=== PATIENT | male | born 1985 | race African-American/Black ===

== ENCOUNTER 2017-05-26 19:52 | Emergency (ER) | payer MEDICARE, MEDICAID ==
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
[2017-05-26 21:37] VITALS: BP 126/80
== END 2017-05-26 21:49 | disposition home or self-care (01) ==
LOC: ER 19:52
DX: Z93.1 Gastrostomy status (principal); Z87.891 Personal history of nicotine dependence; G82.50 Quadriplegia, unspecified; I10 Essential (primary) hypertension; Z79.01 Long term (current) use of anticoagulants

== ENCOUNTER 2017-05-28 05:00 | Emergency (ER) | payer MEDICARE, MEDICAID ==
--- NOTE | 2017-05-28 05:08 | ERNOTE ---
Medical Problem HPI - General Time Seen by Provider: 05/28/17 05:00 Source: patient, EMS, RN notes reviewed Exam Limitations: clinical condition - Immun/Allergies/Home Medications Immunizations: IMMUNIZATION HX Immunizations Up to Date Yes History of Influenza Vaccine Yes Hx Pneumococcal Vaccination Yes Allergies/Adverse Reactions: Allergies morphine Allergy (Verified 05/26/17 20:13) Home Medications: HOME MEDICATIONS Acetaminophen 160 mg PEG BID 05/26/17 [Last Taken Unknown] Amitriptyline HCl [Elavil] 50 mg PEG HS 05/26/17 [Last Taken Unknown] Ascorbic Acid [Vitamin C] 500 mg PEG DAILY 05/26/17 [Last Taken Unknown] Baclofen 20 mg PEG TID 05/26/17 [Last Taken Unknown] Budesonide [Pulmicort Respules] 0.5 mg IH BID 05/26/17 [Last Taken Unknown] Chlorhexidine Gluconate [Peridex 0.12%] 15 ml MM BID 05/26/17 [Last Taken Unknown] Guaifen/Dextromethorphan/PE [Robafen Cf Liquid] 118 ml PEG QID 05/26/17 [Last Taken Unknown] Lactobacillus Acidophilus [Acidophilus] 2 each PEG BID 05/26/17 [Last Taken Unknown] Polyethylene Glycol 3350 [Miralax] 17 gm PEG DAILY 05/26/17 [Last Taken Unknown] Rivaroxaban [Xarelto] 20 mg PEG DAILY 05/26/17 [Last Taken Unknown] Scopolamine 1 each TD 05/26/17 [Last Taken Unknown] Zinc Sulfate 220 mg PEG DAILY 05/26/17 [Last Taken Unknown] Zolpidem Tartrate 5 mg PO DAILY 05/26/17 [Last Taken Unknown] levETIRAcetam [Keppra Solution] 10 ml PEG BID 05/26/17 [Last Taken Unknown] - History of Present History Narrative: Patient here yesterday for an x-ray after having his PEG tube become displaced. He is back today with the PEG tube out again. Review of Systems - Review of Systems Constitutional: Absent: recent illness, fever, chills EYE: Present: no symptoms reported ENT: Absent: ear pain, sore throat Respiratory: Absent: shortness of breath, cough, wheezing Cardiology: Absent: chest pain, palpitations Gastrointestinal/Abdominal: Present: abdominal pain. Absent: nausea, vomiting, diarrhea Genitourinary: Present: no symptoms reported Musculoskeletal: Present: no symptoms reported Skin: Present: no symptoms reported Neurological: Present: no symptoms reported - Patient's Past Medical History Patient History - Medical: Obesity, Seizures, Other - quadriplegic with a C3-C4 spinal cord injury resulting in an inability to move any of his limbs. He also has a feeding tube for eating. Patient History - Cardiac/Respiratory: Hypertension, CPAP/BiPAP Home Use, Other Patient History - Surgical Procedures: Other - Immunizations Immunizations Up to Date: Yes Hx Pneumococcal Vaccination: Yes History of Influenza Vaccine: Yes Physical Exam - Physical Exam General Appearance: Present: alert, no apparent distress Head Exam: Present: normal inspection, no evidence of injury Eye Exam: Normal inspection: bilateral, PERRL: bilateral, EOMI: bilateral Ears, Nose, Throat: Present: normal ENT inspection, other - tracheostomy Neck: Present: nontender Respiratory: Present: no respiratory distress, normal breath sounds, no accessory muscle use, chest nontender, lungs clear Cardiovascular/Chest: Present: regular rate, rhythm, no murmur Gastrointestinal/Abdominal: Present: normal bowel sounds, nontender, nondistended, soft, other - PEG tube not in place Extremity Exam: Present: other - all four extremities without movement, positive contractures all four extremities Neurological Exam: Present: alert, oriented, normal mood/affect Skin Exam: Present: normal color, warm/dry ED Progress - Vital Signs Patient's Vital Signs:: I have reviewed the patient's vital signs. - X-Ray X-Ray #1 X-Ray: abdomen Interpretation: Interp. by me X-ray Comments: KUB to verify tube placement Contrast noted in stomach, however, the right jaci-diaphragm appears to be markedly elevated. Will get a portable chest x-ray to look at the chest. X-Ray #2 X-Ray: chest Interpretation: Interp. by me X-ray Comments: Chest single view AP Mildly elevated right jaci-diaphragm noted, Osteopenia - Progress/Reassessment Progress:: Improved Progress Note-Subjective: 05/28/17 06:43 PEG tube replaced using one sent over from the [facility], without complications. It has a 20 cc bulb and 20 cc of normal saline were injected into the bulb, no leakage was noted. Contrast material was placed in the PEG tube, with a portable x-ray showing contrast in the antrum of the stomach. Procedures Additional Procedures: gastric tube replacement Complications: Pt precious procedure well Comments: Patient tolerated the procedure well, gastric tube was replaced, 20 cc normal saline placed in the bulb without problems. Departure Clinical Impression: S/P percutaneous endoscopic gastrostomy (PEG) tube placement - Departure Disposition: [facility] Condition: Good
[2017-05-28 08:50] VITALS: BP 141/94
== END 2017-05-28 08:51 | disposition home or self-care (01) ==
LOC: ER 05:00
DX: Z43.1 Encounter for attention to gastrostomy (principal); G40.89 Other seizures; G82.50 Quadriplegia, unspecified

== ENCOUNTER 2017-08-25 01:44 | Inpatient (IN) ==
--- NOTE | 2017-08-25 02:24 | ERNOTE ---
Medical Problem HPI - Narrative Date of Service: 08/25/17 - General Chief Complaint: General Assessment Time Seen by Provider: 08/25/17 02:02 Source: patient, RN notes reviewed - Immun/Allergies/Home Medications Immunizations: IMMUNIZATION HX Immunizations Up to Date Yes History of Influenza Vaccine Yes Hx Pneumococcal Vaccination Yes Allergies/Adverse Reactions: Allergies morphine Allergy (Verified 08/25/17 02:54) Opioids - Morphine Analogues Allergy (Verified 08/25/17 02:54) Home Medications: HOME MEDICATIONS Acetaminophen 160 mg PEG BID 05/26/17 [Last Taken Unknown] Amitriptyline HCl [Elavil] 25 mg PEG HS 05/26/17 [Last Taken Unknown] Ascorbic Acid [Vitamin C] 500 mg PEG DAILY 05/26/17 [Last Taken Unknown] Baclofen 20 mg PEG TID 05/26/17 [Last Taken Unknown] Budesonide [Pulmicort Respules] 0.5 mg IH BID 05/26/17 [Last Taken Unknown] Chlorhexidine Gluconate [Peridex 0.12%] 15 ml MM BID 05/26/17 [Last Taken Unknown] Lactobacillus Acidophilus [Acidophilus] 2 each PEG BID 05/26/17 [Last Taken Unknown] Polyethylene Glycol 3350 [Miralax] 17 gm PEG DAILY 05/26/17 [Last Taken Unknown] Rivaroxaban [Xarelto] 20 mg PEG DAILY 05/26/17 [Last Taken Unknown] Zinc Sulfate 220 mg PEG DAILY 05/26/17 [Last Taken Unknown] Acetylcysteine [Mucomyst 20%] 3 ml NEB BID 08/25/17 [Last Taken Unknown] Albuterol Sulfate/Ipratropium [Duoneb 2.5-0.5MG/3ML Soln] 3 ml NEB Q4H 08/25/17 [Last Taken Unknown] Cyclobenzaprine HCl 10 mg PEG TID 08/25/17 [Last Taken Unknown] Docusate Sodium 100 mg PEG BID 08/25/17 [Last Taken Unknown] Ferrous Sulfate [Ferosul] 6.8 ml PEG BID 08/25/17 [Last Taken Unknown] Furosemide [Lasix] 40 mg PEG DAILY 08/25/17 [Last Taken Unknown] Gabapentin [Neurontin Solution] 1,200 mg PEG TID 08/25/17 [Last Taken Unknown] Guaifen/Dextromethorphan/PE [Robafen Cf Liquid] 30 ml PEG Q6H PRN 08/25/17 [ Last Taken Unknown] Megestrol Acetate [Megace Suspension] 20 ml PEG DAILY 08/25/17 [Last Taken Unknown] Nabumetone 750 mg PEG BID 08/25/17 [Last Taken Unknown] Omeprazole [Prilosec] 10 ml PEG DAILY 08/25/17 [Last Taken Unknown] Potassium Chloride 15 ml PEG DAILY 08/25/17 [Last Taken Unknown] Simethicone [Gas Relief] 80 mg PEG DAILY 08/25/17 [Last Taken Unknown] levETIRAcetam [Keppra Solution] 10 ml PEG BID 08/25/17 [Last Taken Unknown] - History of Present History Narrative: This is a 32-year-old male from local assisted living[facility]it[facility]iary who is a quadriplegic. He is vent dependent. He was doing fine until earlier today when he was noted to have increasing oxygen requirements. He was noted to have increasing work of breathing. He has also been noted to have a fever. Patient says that he feels a little tight across the chest. No coughing. No vomiting. No other changes in any of his bodily systems. He says he just doesn't feel normal Review of Systems - Narrative Narrative: Except as described in the HPI, the remainder of the review of systems is negative - Patient's Past Medical History Patient History - Medical: Anemia, Diabetes Type 2, Obesity, Seizures, Other Patient History - Cardiac/Respiratory: Hypertension, CPAP/BiPAP Home Use, Other Patient History - Cancer: No Hx of Cancer Patient History - Surgical Procedures: Back Surgery, Other, Urology Patient History - Other: None - Social History Living Situations: penitentiary Abuse History: No History of abuse Psych History: No pertinent hx Smoking Status: Never smoker Alcohol Use: none Drug Use: none - Immunizations Immunizations Up to Date: Yes Hx Pneumococcal Vaccination: Yes History of Influenza Vaccine: Yes Physical Exam - Physical Exam General Appearance: Present: wd/wn, alert, no apparent distress Head Exam: Present: normal inspection, no evidence of injury Eye Exam: Normal inspection: bilateral, PERRL: bilateral, EOMI: bilateral Ears, Nose, Throat: Present: normal ENT inspection. Absent: cerumen impaction, normal pharynx, tonsillar exudate Neck: Present: normal inspection, nontender, other - patient has a trach with vent attached Respiratory: Present: other - lungs were auscultated anteriorly. I hear no crackles or wheezes Cardiovascular/Chest: Present: regular rate, rhythm, no murmur, normal peripheral pulses, other - patient is right around 100 bpm. No murmurs, rubs or gallops Gastrointestinal/Abdominal: Present: normal bowel sounds, nontender, nondistended, soft Rectal Exam: Present: deferred Male Genitals Exam: Present: deferred Back Exam: Absent: normal inspection, normal range of motion, no CVA tenderness , no vertebral tenderness Extremity Exam: Present: normal inspection, other - patient is in splints to prevent breakdown Neurological Exam: Present: other - awake and alert. No change from baseline per the patient Skin Exam: Present: normal color, warm/dry Lymphatic Exam: Present: no adenopathy ED Progress - Results and Orders Patient's Lab Results:: I have reviewed the patient's lab results. - Vital Signs Patient's Vital Signs:: I have reviewed the patient's vital signs. Vital Signs: Vital Signs 08/25/17 01:46 Temperature 38.2 C H Pulse Rate 100 Respiratory 17 Rate Blood Pressure 109/63 O2 Sat by Pulse 95 Oximetry - X-Ray X-Ray #1 X-Ray: chest Interpretation: Interp. by me X-ray Comments: Bilateral pneumonia - Progress/Reassessment Chief Complaint: General Assessment Plan - Plan Plan: The patient has what looks to me like bilateral pneumonia. I'm unable to get an old film for comparison. He has a fever. He has chest tightness. He has increasing oxygen requirements. This is adequate for me to say he does indeed have pneumonia. He grew out gram-positive diplococci in his sputum reported yesterday. This is almost certainly strep pneumo. The Levaquin will treat this. I still think he needs double coverage for antipseudomonal. We will put him in obvious. Dr. Rey apparentlyin quite well and allow Dr. Rey to make a decision on further disposition tomorrow Departure Clinical Impression: Pneumonia - Departure Disposition: Still a patient Condition: Fair Referrals: Reyna Rey DO [Primary Care Provider] -
[2017-08-25 02:57] LABS: Hematocrit 35.7 % (42.0-52.0); Hemoglobin 10.5 gm/dL (13.5-18.0); Mean Corpuscular Hemoglobin 27.1 pg (27-31); Mean Corpuscular Hgb Conc 29.4 g/dl (32-36); Platelet Count 203 K/mm3 (150-450); Red Blood Count 3.88 M/mm3 (4.7-6.0); Red Cell Distribution Width 22.6 % (11.5-14.0); White Blood Count 10.1 K/mm3 (4.0-10.5)
[2017-08-25 02:57] LABS: Urine Bilirubin Negative (NEGATIVE); Urine Blood 250 /ul (NEGATIVE); Urine Ketone Negative (NEGATIVE); Urine Protein 100 mg/dL (NEGATIVE); Urine Urobilinogen Normal (NORMAL); Urine pH 6.5 pH (5.0-7.0)
[2017-08-25 02:58] LABS: Albumin * 2.9 gm/dl (3.4-5.0); Anion Gap 5.2 mmol/L (6.8-13.8); BUN/Creatinine Ratio 75.9 (9.0-21.6); Bilirubin, Total 0.3 mg/dL (0.0-1.1); Ca. Corrected For Albumin 9.3 mg/dL (8.4-10.2); Calcium * 8.7 mg/dL (7.9-10.9); Carbon Dioxide 36.6 mmol/L (24-32.6); Potassium 4.8 mmol/L (3.4-4.6); Total Protein 7.6 gm/dL (6.2-8.2)
[2017-08-25 02:59] LABS: Total Cells Counted 100
[2017-08-25 03:00] LABS: Urine Appearance Cloudy (CLEAR); Urine Color Dark Yellow; Urine Nitrite Positive (NEGATIVE)
[2017-08-25] MEDS ORDERED: PIPERACILLIN SODIUM/TAZOBACTAM 3.375 GM in DEXTROSE 5 % IN WATER 100 ML IV ONE ×2 (03:00)
[2017-08-25] MEDS ORDERED: LEVOFLOXACIN IN DEXTROSE 5 % 750 MG/150 ML BAG IV ONE (03:00)
[2017-08-25 03:01] LABS: Urine Bacteria 4+
[2017-08-25 03:15] LABS: Eosinophil 1 % (0-3); Hypochromia 1+; Lymphocyte 18 % (20-51); Monocyte 6 % (0-9); Neutrophil 75 % (42-75); Neutrophil # 7.6 K/mm3 (1.3-6.0); Platelet Estimate Normal (NORMAL)
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
[2017-08-25] MEDS ORDERED: diphenhydrAMINE HCL 12.5 MG/5 ML BTL PEG ONE (04:35)
--- NOTE | 2017-08-25 05:01 | OR ---
Anesthesia Procedure Note - Anesthesia Procedure Note Narrative: Vital Signs - Last Taken Temp 37.2 C 08/25/17 02:47 Pulse 99 08/25/17 04:00 Resp 22 H 08/25/17 04:00 BP 104/68 08/25/17 04:00 Pulse Ox 97 08/25/17 04:00 O2 Oxygen Delivery Method Vent 08/25/17 05:00 ANESTHESIA PROCEDURE NOTE Date of procedure: 08/25/2017. Time of procedure: 0450. Performed by: Raúl Doran CRNA [employer] Trimmer: None . Preprocedure diagnosis: Pneumonia. Difficult IV access. Post procedure diagnosis: Same. Procedure: IV start Indications: Difficult IV access. Findings: 22-gauge Angiocath IV started in patient's left foot. EBL: Minimal. Fluids: N/A. Specimen: N/A. Post procedure condition: The patient tolerated the procedure well. No complications were noted. Thank you for this consultation Raúl Doran CRNA
[2017-08-25] MEDS ORDERED: guaiFENesin/DEXTROMETHORPHAN 118 ML BTL PEG PRN (05:44)
[2017-08-25] MEDS ORDERED: ALBUTEROL SULFATE/IPRATROPIUM 3 ML NEBU IH SCH (05:45)
[2017-08-25] MEDS ORDERED: ACETYLCYSTEINE 200 MG/ML VIAL ONE (06:05)
[2017-08-25] MEDS: BUDESONIDE 0.5 MG/2 ML VIAL.NEB IH SCH ×2 (06:12→18:27)
[2017-08-25] MEDS: ALBUTEROL SULFATE/IPRATROPIUM 3 ML NEBU IH SCH ×5 (06:12→22:04)
[2017-08-25] MEDS ORDERED: ACETYLCYSTEINE 200 MG/ML VIAL IH SCH ×3 (07:00→19:00)
[2017-08-25] MEDS: levETIRAcetam 100 MG/ML BTL PEG SCH ×2 (08:40→20:55)
[2017-08-25] MEDS: ASCORBIC ACID 500 MG TABLET PEG SCH (08:41)
[2017-08-25] MEDS: DOCUSATE SODIUM 150 MG/15 ML BTL PEG SCH ×2 (08:41→20:53)
[2017-08-25] MEDS: CYCLOBENZAPRINE HCL 10 MG TABLET PEG SCH ×3 (08:41→20:50)
[2017-08-25] MEDS: BACLOFEN 10 MG TABLET PEG SCH ×3 (08:42→20:49)
[2017-08-25] MEDS: FUROSEMIDE 40 MG TABLET PEG SCH (08:42)
[2017-08-25] MEDS: SIMETHICONE 80 MG TAB.CHEW PEG SCH (08:42)
[2017-08-25] MEDS: CHLORHEXIDINE GLUCONATE 15 ML UDC MM SCH ×2 (08:43→20:55)
[2017-08-25] MEDS: NABUMETONE 500 MG TABLET PO SCH ×2 (08:43→20:54)
[2017-08-25] MEDS: ACETAMINOPHEN 160 MG/5 ML BTL PEG SCH ×2 (08:43→20:56)
[2017-08-25] MEDS: GABAPENTIN 250 MG/5 ML PEG SCH ×3 (08:49→20:51)
[2017-08-25] MEDS: RIVAROXABAN 20 MG TABLET PEG SCH (08:51)
[2017-08-25] MEDS: POLYETHYLENE GLYCOL 3350 119 GM BTL PEG SCH (08:57)
[2017-08-25] MEDS ORDERED: OMEPRAZOLE 2 MG/ML BTL PEG SCH (09:00)
[2017-08-25] MEDS ORDERED: SACCHAROMYCES BOULARDII 250 MG CAPSULE PO SCH (09:00)
[2017-08-25] MEDS ORDERED: MEGESTROL ACETATE 40 MG/ML BTL PEG SCH (09:00)
[2017-08-25] MEDS ORDERED: PIPERACILLIN SODIUM/TAZOBACTAM 3.375 GM in DEXTROSE 5 % IN WATER 100 ML IV SCH ×2 (09:00)
[2017-08-25] MEDS ORDERED: BUDESONIDE 0.5 MG/2 ML VIAL.NEB IH SCH (09:00)
[2017-08-25] MEDS ORDERED: ZINC SULFATE 220 MG CAPSULE PEG SCH (09:00)
[2017-08-25] MEDS: LACTOBACILLUS ACIDOPHILUS 100 CAP BTL PEG SCH ×2 (11:06→20:52)
[2017-08-25] MEDS: FERROUS SULFATE 220 MG/5 ML PEG SCH ×2 (11:06→20:54)
[2017-08-25] MEDS: ACETYLCYSTEINE 200 MG/ML VIAL IH SCH ×2 (13:30→18:29)
[2017-08-25] MEDS ORDERED: CEFEPIME HCL 2 GM in DEXTROSE 5 % IN WATER 100 ML IV SCH ×2 (13:45)
[2017-08-25] MEDS: VANCOMYCIN HCL 2 GM in DEXTROSE 5 % IN WATER 500 ML IV SCH ×2 (15:26)
[2017-08-25] MEDS ORDERED: DIATRIZOATE MEGLUMINE, SODIUM 30 ML BTL PO ONE (15:40)
[2017-08-25] MEDS ORDERED: HYDROmorphone HCL 2 MG/ML VIAL IV ONE (15:45)
[2017-08-25] MEDS ORDERED: NORMAL SALINE 500 ML IV ONE (15:49)
[2017-08-25] MEDS: PIPERACILLIN SODIUM/TAZOBACTAM 3.375 GM in DEXTROSE 5 % IN WATER 100 ML IV SCH ×2 (19:42)
[2017-08-25] MEDS: AMITRIPTYLINE HCL 25 MG TABLET PEG SCH (20:53)
[2017-08-26] MEDS: PIPERACILLIN SODIUM/TAZOBACTAM 3.375 GM in DEXTROSE 5 % IN WATER 100 ML IV SCH ×6 (00:53→17:49)
[2017-08-26] MEDS: ALBUTEROL SULFATE/IPRATROPIUM 3 ML NEBU IH SCH ×5 (02:33→18:25)
[2017-08-26] MEDS ORDERED: LEVOFLOXACIN IN DEXTROSE 5 % 750 MG/150 ML BAG IV SCH (03:00)
[2017-08-26] MEDS ORDERED: ZOLPIDEM TARTRATE 10 MG TABLET ONE (03:07)
[2017-08-26] MEDS: ZOLPIDEM TARTRATE 10 MG TABLET PO SCH ×2 (03:10→20:49)
[2017-08-26] MEDS: VANCOMYCIN HCL 2 GM in DEXTROSE 5 % IN WATER 500 ML IV SCH ×4 (05:09→14:32)
--- NOTE | 2017-08-26 05:43 | PN ---
Subjective - Date and Time Seen Date: 08/26/17 Time: 05:43 Subjective Narrative: Pt seen this am. He is in no distress. ABGs better this morning. No acute events overnight. Objective - Vitals Vitals: Last Vital Signs Temp 37.0 C 08/26/17 00:00 Pulse 104 H 08/26/17 02:33 Resp 31 H 08/26/17 02:33 BP 136/58 08/26/17 00:00 Pulse Ox 92 08/26/17 02:33 - Abnormal Lab Findings Abnormal Lab Findings: Abnormal Lab Results 08/25/17 08/25/17 Range/Units 07:25 20:30 pCO2 71.8 H* 77.7 H* (35.0-48.0) mmHg pO2 71.2 L 60.5 L (83.0-108.0) mmHg HCO3 36.7 H 36.1 H (21.0-28.0) mmol/L Total CO2 38.9 H 38.5 H (19.0-24.0) mmol/L Base Excess 8.3 H 7.1 H (-2.0-3.0) mmol/L ABG pH 7.33 L 7.29 L (7.35-7.45) ABG O2 Sat (Measured) 92.5 L 87.0 L (94.0-98.0) % - Exam Constitutional: Present: Alert, Oriented x3, No distress ENT Exam: Present: other - Tracheotomy midline. Neck: Absent: full range of motion Breasts: Present: Exam deferred Respiratory: Present: decreased breath sounds, No rales Cardiovascular/Chest: Present: normal peripheral pulses, regular rate, rhythm, no chest tenderness Abdomen: Present: Normal bowel sounds, tender, distended /Rectal: Present: Exam deferred Extremity: Present: lower extremity edema - RLE, other - Qadraplegic, BLE foot drop Skin Exam: Present: warm/dry, no cyanosis Neurologic: Present: alert, normal mood/affect, motor weakness, sensory deficit Appearance: Present: appropriate insight Eye contact: Present: cooperative, good eye contact Thoughts: Present: no apparent hallucination Assessment/Plan - Problems/Diagnosis (1) Acute and chronic respiratory failure Problem: Acute Narrative: 08/25-Continue scheduled nebulizer treatment. Will increase RR from 10-16 and Titrate Oxygen from 2-4L, Repeat ABGs in [address] of the chest. 08/25- ABGs unimproved. RR increased to 24, and oxygen titrated with plan to repeat ABG in am. No sign of distress in patient. (2) Pneumonia Problem: Acute Qualifiers: Laterality: bilateral Narrative: May have probable pneumonia, will await official radiology report. Started on Levaquin and Zosyn at the ED. Will stop the Levaquin as he has coverage for Pseudomonas with Zosyn and will add Vancomycin due to MRSA risk factors. 7 day course is recommended according to IDSA. Blood and sputum culture results are pending. (3) Abdominal pain Problem: Acute Qualifiers: Abdominal location: generalized Qualified Code(s): R10.84 - Generalized abdominal pain Narrative: 08/24-Appeared distended and abd. tympanitic and tender. Hold TF until we get KUB results. 08/25- CT scan of Abdomen non-diagnostic due to lack of contrast use (4) Recurrent UTI Problem: Acute Narrative: Covered with IV ax for PNA. Wait for urine culture results. Laboratory Tests 08/25/17 02:41 Urine Blood 250 H Urine Nitrate Positive H Ur Leukocyte Esterase 75 H Urine RBC 10-25 H Urine WBC 5-10 H Urine Bacteria 4+ H Urine Culture Comments Culture to follow (5) Tracheostomy dependence Problem: Chronic Narrative: Continue scheduled nebulizer treatments. Check ABGs. (6) Ventilator dependent Problem: Chronic (7) HTN (hypertension) Problem: Chronic Qualifiers: Hypertension type: essential hypertension Qualified Code(s): I10 - Essential (primary) hypertension
[2017-08-26] MEDS: ACETYLCYSTEINE 200 MG/ML VIAL IH SCH (06:03)
[2017-08-26] MEDS: BUDESONIDE 0.5 MG/2 ML VIAL.NEB IH SCH ×2 (06:03→18:26)
[2017-08-26 06:17] LABS: Hematocrit 35.9 % (42.0-52.0); Hemoglobin 11.1 gm/dL (13.5-18.0); Mean Corpuscular Hemoglobin 27.2 pg (27-31); Mean Corpuscular Hgb Conc 30.9 g/dl (32-36); Platelet Count 243 K/mm3 (150-450); Red Blood Count 4.08 M/mm3 (4.7-6.0); Red Cell Distribution Width 22.8 % (11.5-14.0); White Blood Count 11.3 K/mm3 (4.0-10.5)
[2017-08-26 06:19] LABS: Total Cells Counted 100
[2017-08-26 06:22] LABS: Anion Gap 6.2 mmol/L (6.8-13.8); BUN/Creatinine Ratio 31.4 (9.0-21.6); Blood Urea Nitrogen 11 mg/dL (6-23); Calcium * 8.7 mg/dL (7.9-10.9); Carbon Dioxide 35.3 mmol/L (24-32.6); Chloride 98 mmol/L (97-106); Glucose * 190 mg/dL (70-110); Potassium 4.5 mmol/L (3.4-4.6); Sodium 135 mmol/L (132-142)
[2017-08-26 06:44] LABS: Band 2 % (0-2.0); Eosinophil 1 % (0-3); Lymphocyte 13 % (20-51); Monocyte 7 % (0-9); Neutrophil 77 % (42-75); Neutrophil # 8.7 K/mm3 (1.3-6.0); Platelet Estimate Normal (NORMAL); RBC Morphology Normal (NORMAL)
--- NOTE | 2017-08-26 08:05 | OR ---
Anesthesia Procedure Note - Anesthesia Procedure Note Date of Service: 08/26/17 Narrative: Vital Signs - Last Taken Temp 37.0 C 08/26/17 00:00 Pulse 92 08/26/17 06:03 Resp 24 H 08/26/17 06:03 BP 136/58 08/26/17 00:00 Pulse Ox 93 08/26/17 06:03 O2 Oxygen Delivery Method Vent 08/26/17 08:01 ANESTHESIA PROCEDURE NOTE Date of Procedure: 08/26/2017. Time of procedure: 739. Performed by: Bart Lowe CRNA A And P Mechanic: None. Preprocedure diagnosis: Difficult IV access. Post procedure diagnosis: Same. Procedure: Attempted Peripheral vein IV insertion. Indications: This is a 32-year-old -[place] male in need of a peripheral IV for vancomycin infusion. Findings: See below. Details of the procedure: Skin over the intended target site was cleansed with alcohol. Multiple IV attempts were made on the right arm and hand veins without success. Ultrasound visualization of veins were then attempted without discovery of any suitable veins for IV cannulation for PICC line. The procedure was then aborted. Recommend central line placement per general surgeon. EBL: Minimal. Fluids: N/A. Specimen: N/A. Post procedure condition: The patient tolerated the procedure well. No complications were noted. Thank you for this consultation. Bart Lowe CRNA
[2017-08-26] MEDS ORDERED: VANCOMYCIN HCL LEVEL XX ONE (08:15)
[2017-08-26] MEDS ORDERED: OMEPRAZOLE 2 MG/ML BTL PEG SCH (09:00)
[2017-08-26] MEDS: ASCORBIC ACID 500 MG TABLET PEG SCH (09:41)
[2017-08-26] MEDS: RIVAROXABAN 20 MG TABLET PEG SCH (09:41)
[2017-08-26] MEDS: CYCLOBENZAPRINE HCL 10 MG TABLET PEG SCH ×3 (09:41→17:56)
[2017-08-26] MEDS: NABUMETONE 500 MG TABLET PO SCH ×2 (09:41→20:53)
[2017-08-26] MEDS: FUROSEMIDE 40 MG TABLET PEG SCH (09:42)
[2017-08-26] MEDS: SIMETHICONE 80 MG TAB.CHEW PEG SCH (09:42)
[2017-08-26] MEDS: BACLOFEN 10 MG TABLET PEG SCH ×3 (09:42→17:56)
[2017-08-26] MEDS: levETIRAcetam 100 MG/ML BTL PEG SCH ×2 (09:43→20:52)
[2017-08-26] MEDS: FERROUS SULFATE 220 MG/5 ML PEG SCH ×2 (09:45→20:52)
[2017-08-26] MEDS: LACTOBACILLUS ACIDOPHILUS 100 CAP BTL PEG SCH ×2 (09:45→20:50)
[2017-08-26] MEDS: DOCUSATE SODIUM 150 MG/15 ML BTL PEG SCH ×2 (09:46→20:51)
[2017-08-26] MEDS: POLYETHYLENE GLYCOL 3350 119 GM BTL PEG SCH (09:47)
[2017-08-26] MEDS: GABAPENTIN 250 MG/5 ML PEG SCH ×3 (09:48→17:56)
[2017-08-26] MEDS: ACETAMINOPHEN 160 MG/5 ML BTL PEG SCH ×2 (09:50→20:53)
[2017-08-26] MEDS: CHLORHEXIDINE GLUCONATE 15 ML UDC MM SCH ×2 (09:54→20:53)
[2017-08-26] MEDS ORDERED: HYDROmorphone HCL 2 MG/ML VIAL IV ONE (14:03)
--- NOTE | 2017-08-26 14:10 | OR ---
Anesthesia Procedure Note - Anesthesia Procedure Note Narrative: Vital Signs - Last Taken Temp 36.8 C 08/26/17 09:00 Pulse 113 H 08/26/17 10:33 Resp 28 H 08/26/17 10:33 BP 101/58 08/26/17 09:42 Pulse Ox 93 08/26/17 10:32 O2 Oxygen Delivery Method Vent 08/26/17 14:08 ANESTHESIA PROCEDURE NOTE Date of procedure: 08/26/2017. Time of procedure: 1350. Performed by: Raúl Doran CRNA [employer]: None . Preprocedure diagnosis: Pneumonia. Difficult IV access. Post procedure diagnosis: Same. Procedure: IV start Indications: Difficult IV access.. Findings: 22-gauge Angiocath IV started in patient's left antecubital fossa. EBL: Minimal. Fluids: N/A. Specimen: N/A. Post procedure condition: The patient tolerated the procedure well. No complications were noted. Thank you for this consultation Raúl Doran CRNA
[2017-08-26] MEDS ORDERED: ACETYLCYSTEINE 200 MG/ML VIAL IH SCH (15:00)
[2017-08-26] MEDS ORDERED: HYDROmorphone HCL 2 MG/ML VIAL IV PRN (15:32)
[2017-08-26] MEDS ORDERED: NALOXONE HCL 0.4 MG/ML VIAL IV STA ×2 (17:38→19:27)
[2017-08-26] MEDS ORDERED: KETOROLAC TROMETHAMINE 30 MG/ML VIAL IV PRN (17:38)
[2017-08-26] MEDS ORDERED: NALOXONE HCL 1 MG/1 ML SYRG ONE ×2 (17:42→19:30)
[2017-08-26] MEDS: AMITRIPTYLINE HCL 25 MG TABLET PEG SCH (20:52)
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
[2017-08-27 04:34] VITALS: BP 118/57
[2017-08-28] MEDS ORDERED: VANCOMYCIN HCL LEVEL XX ONE (14:30)
== END 2017-08-26 22:25 | disposition short-term general hospital (02) | DRG 189 ==
LOC: ER 01:44 → MS 03:34 → OBSVTOIN 05:40
PROVIDERS: ADMIT Nurse Practitioner; ATTEND Internal Medicine
DX: V89.2XXS Person injured in unspecified motor-vehicle accident, traffic, sequela; N39.0 Urinary tract infection, site not specified; S14.103S Unspecified injury at C3 level of cervical spinal cord, sequela; E87.2 Acidosis; R10.84 Generalized abdominal pain; J96.21 Acute and chronic respiratory failure with hypoxia; Z99.11 Dependence on respirator [ventilator] status; Z88.8 Allergy status to other drugs, medicaments and biological substances; Z87.440 Personal history of urinary (tract) infections; I10 Essential (primary) hypertension; G82.50 Quadriplegia, unspecified; R10.9 Unspecified abdominal pain; E11.9 Type 2 diabetes mellitus without complications; J90 Pleural effusion, not elsewhere classified; Z86.718 Personal history of other venous thrombosis and embolism; J18.9 Pneumonia, unspecified organism
CPT/HCPCS: 36415; 36600; 71010; 71045; 71260; 74000; 74018; 74176; 80048; 80053; 81001; 82043; 82570; 82803; 83519; 83605; 83880; 84145; 84155; 84156; 85007; 85025; 86038; 86160; 86705; 87040; 87070; 87077; 87081; 87086; 87186; 87389; 87400; 87449; 87516; 94640; 94664; 96365; 99283

== ENCOUNTER 2018-02-15 13:51 | Inpatient (IN) ==
[2018-02-15] MEDS ORDERED: POTASSIUM CHLORIDE 40 MEQ in NORMAL SALINE 1,000 ML IV SCH (14:15)
[2018-02-15 14:57] LABS: Hematocrit 36.8 % (42.0-52.0); Hemoglobin 11.6 gm/dL (13.5-18.0); Mean Cell Volume 97.1 fl (78-100); Mean Corpuscular Hemoglobin 30.6 pg (27-31); Mean Corpuscular Hgb Conc 31.5 g/dl (32-36); Neutrophil % 66.7 % (42-75.0); Platelet Count 304 K/mm3 (150-450); Red Blood Count 3.79 M/mm3 (4.7-6.0); Red Cell Distribution Width 16.1 % (11.5-14.0)
[2018-02-15 15:16] LABS: Urine Bilirubin Negative (NEGATIVE); Urine Ketone Negative (NEGATIVE); Urine Protein Negative (NEGATIVE); Urine Specific Gravity 1.015 SP.GR. (1.005-1.030); Urine Urobilinogen Normal (NORMAL)
[2018-02-15 15:17] LABS: ALT 58 U/L (19-67); AST 17 U/L (0-48); Albumin * 2.7 gm/dl (3.4-5.0); Alkaline Phosphatase * 91 U/L (50-170); BNP * 102 pg/mL (5-140); BUN/Creatinine Ratio 70.2 (9.0-21.6); Bilirubin, Total 0.3 mg/dL (0.0-1.1); Blood Urea Nitrogen 33 mg/dL (6-23); Ca. Corrected For Albumin 11.1 mg/dL (8.4-10.2); Calcium * 10.4 mg/dL (7.9-10.9); Carbon Dioxide 44.5 mmol/L (24-32.6); Chloride 93 mmol/L (97-106); Glucose * 226 mg/dL (70-110); Sodium 133 mmol/L (132-142); Total Protein 7.4 gm/dL (6.2-8.2)
[2018-02-15 15:25] LABS: Potassium 2.5 mmol/L (3.4-4.6); Troponin I Less than 0.017 ng/mL (0.00-0.10)
[2018-02-15 15:25] LABS: Urine Appearance Clear (CLEAR); Urine Blood 5 /ul (NEGATIVE); Urine Color Pale Yellow; Urine Nitrite Positive (NEGATIVE)
[2018-02-15 15:26] LABS: Urine Bacteria TRACE; Urine RBC 0-5 /hpf (0-5); Urine WBC 0-5 /hpf (0-5)
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
[2018-02-15] MEDS: LEVOFLOXACIN IN DEXTROSE 5 % 750 MG/150 ML BAG IV SCH (17:34)
[2018-02-15] MEDS ORDERED: ACETAMINOPHEN 500 MG TABLET PO PRN ×2 (17:53→19:55)
[2018-02-15] MEDS ORDERED: HYDROcodone/ACETAMINOPHEN 1 EACH TABLET PEG PRN (18:37)
[2018-02-15] MEDS ORDERED: IPRATROPIUM BROMIDE 0.5 MG/2.5 ML VIAL.NEB IH PRN ×2 (18:37→19:53)
[2018-02-15] MEDS ORDERED: LEVALBUTEROL HCL 0.63 MG/3 ML AMPUL IH PRN (18:37)
[2018-02-15] MEDS ORDERED: IPRATROPIUM BROMIDE 0.5 MG/2.5 ML VIAL.NEB IH SCH ×2 (19:30→21:00)
[2018-02-15] MEDS ORDERED: SODIUM CHLORIDE FOR INHALATION 4 ML VIAL.NEB IH SCH (19:30)
[2018-02-15] MEDS ORDERED: LEVALBUTEROL HCL 0.63 MG/3 ML AMPUL IH SCH (19:30)
[2018-02-15] MEDS: FAMOTIDINE 20 MG in DEXTROSE 5 % IN WATER 100 ML IV SCH ×2 (19:44)
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
[2018-02-15] MEDS: SODIUM CHLORIDE FOR INHALATION 4 ML VIAL.NEB IH SCH (20:01)
[2018-02-15] MEDS: IPRATROPIUM BROMIDE 0.5 MG/2.5 ML VIAL.NEB IH SCH (20:01)
[2018-02-15] MEDS: LEVALBUTEROL HCL 0.63 MG/3 ML AMPUL IH SCH (20:02)
[2018-02-15] MEDS: guaiFENesin/DEXTROMETHORPHAN 118 ML BTL PEG SCH ×2 (20:10→22:37)
[2018-02-15] MEDS: ENTERAL NUTRITION FORMULA PEG SCH (20:21)
[2018-02-15] MEDS: [UNRECOGNIZED DRUG - OTHER] PEG SCH (20:21)
[2018-02-15] MEDS ORDERED: POTASSIUM CHLORIDE PEG SCH (21:00)
[2018-02-15] MEDS ORDERED: PREGABALIN PEG SCH (21:00)
[2018-02-15] MEDS ORDERED: levETIRAcetam 500 MG TABLET PEG SCH ×2 (21:00)
[2018-02-15] MEDS ORDERED: AMITRIPTYLINE HCL 25 MG TABLET ONE (21:11)
[2018-02-15] MEDS: POTASSIUM CHLORIDE IN WATER 100 ML IV SCH ×3 (21:15→23:37)
[2018-02-15] MEDS: levETIRAcetam 100 MG/ML BTL PEG SCH (21:16)
[2018-02-15] MEDS: AMITRIPTYLINE HCL 50 MG TABLET PEG SCH (21:16)
[2018-02-15] MEDS: PREGABALIN 75 MG CAPSULE PO SCH (21:17)
[2018-02-15] MEDS: SENNOSIDES 8.6 MG TABLET PEG SCH (21:18)
[2018-02-15] MEDS: METOPROLOL TARTRATE 25 MG TABLET PEG SCH (21:18)
[2018-02-15] MEDS: INSULIN LISPRO 100 UNITS/ML VIAL SC SCH (21:29)
[2018-02-15] MEDS: CHLORHEXIDINE GLUCONATE 480 ML BTL MM SCH (21:38)
[2018-02-16] MEDS: ZOLPIDEM TARTRATE 10 MG TABLET PEG SCH (00:55)
[2018-02-16] MEDS: POTASSIUM CHLORIDE IN WATER 100 ML IV SCH (00:56)
[2018-02-16] MEDS: guaiFENesin/DEXTROMETHORPHAN 118 ML BTL PEG SCH ×6 (03:16→22:30)
[2018-02-16] MEDS: POTASSIUM CHLORIDE/NS 1,000 ML IV SCH ×2 (03:17→10:23)
[2018-02-16 05:30] LABS: Albumin * 2.5 gm/dl (3.4-5.0); Anion Gap 6.2 mmol/L (6.8-13.8); BUN/Creatinine Ratio 46.2 (9.0-21.6); Bilirubin, Total 0.3 mg/dL (0.0-1.1); Ca. Corrected For Albumin 10.1 mg/dL (8.4-10.2); Calcium * 9.2 mg/dL (7.9-10.9); Potassium 3.2 mmol/L (3.4-4.6); Total Protein 7.1 gm/dL (6.2-8.2)
[2018-02-16 05:34] LABS: Hematocrit 36.6 % (42.0-52.0); Hemoglobin 11.5 gm/dL (13.5-18.0); Mean Cell Volume 95.1 fl (78-100); Mean Corpuscular Hemoglobin 29.9 pg (27-31); Mean Corpuscular Hgb Conc 31.4 g/dl (32-36); Mean Platelet Volume 12.5 fl (8-11.3); Neutrophil # 3.8 K/mm3 (1.3-6.0); Platelet Count 273 K/mm3 (150-450); Red Blood Count 3.85 M/mm3 (4.7-6.0); Red Cell Distribution Width 16.2 % (11.5-14.0); White Blood Count 5.9 K/mm3 (4.0-10.5)
[2018-02-16] MEDS ORDERED: LIDOCAINE HCL 10 ML VIAL IM ONE (06:00)
[2018-02-16] MEDS: IPRATROPIUM BROMIDE 0.5 MG/2.5 ML VIAL.NEB IH SCH ×2 (06:04→18:29)
[2018-02-16] MEDS: LEVALBUTEROL HCL 0.63 MG/3 ML AMPUL IH SCH ×2 (06:05→18:35)
[2018-02-16] MEDS: SODIUM CHLORIDE FOR INHALATION 4 ML VIAL.NEB IH SCH ×2 (06:06→23:01)
[2018-02-16] MEDS: PRO STAT SUGAR FREE PEG SCH ×3 (06:38→22:12)
[2018-02-16] MEDS: ENTERAL NUTRITION FORMULA PEG SCH (06:40)
[2018-02-16] MEDS: [UNRECOGNIZED DRUG - OTHER] PEG SCH (06:40)
[2018-02-16] MEDS: INSULIN LISPRO 100 UNITS/ML VIAL SC SCH ×8 (07:31→22:06)
[2018-02-16] MEDS ORDERED: INSULIN GLARGINE,HUM.REC.ANLOG 100 UNITS/ML VIAL SC SCH (09:00)
[2018-02-16] MEDS ORDERED: MONTELUKAST SODIUM 10 MG TABLET PEG SCH ×2 (09:00→21:00)
[2018-02-16] MEDS: RIVAROXABAN 20 MG TABLET PEG SCH (09:55)
[2018-02-16] MEDS: METOPROLOL TARTRATE 25 MG TABLET PEG SCH ×2 (09:55→22:20)
[2018-02-16] MEDS: PREGABALIN 75 MG CAPSULE PO SCH ×2 (09:55→22:21)
[2018-02-16] MEDS: FUROSEMIDE 40 MG TABLET PEG SCH (09:56)
[2018-02-16] MEDS: FERROUS SULFATE 325 MG TABLET PEG SCH ×2 (09:56→16:54)
[2018-02-16] MEDS: HYDROCHLOROTHIAZIDE 25 MG TABLET PEG SCH (09:56)
[2018-02-16] MEDS: ACETAMINOPHEN 325 MG TABLET PEG SCH ×3 (09:56→16:55)
[2018-02-16] MEDS: SENNOSIDES 8.6 MG TABLET PEG SCH ×2 (09:56→22:22)
[2018-02-16] MEDS: BACLOFEN 10 MG TABLET PEG SCH ×3 (09:57→16:54)
[2018-02-16] MEDS: levETIRAcetam 100 MG/ML BTL PEG SCH ×2 (09:58→22:17)
[2018-02-16] MEDS: CHLORHEXIDINE GLUCONATE 480 ML BTL MM SCH ×2 (10:07→22:38)
[2018-02-16] MEDS: FAMOTIDINE 20 MG in DEXTROSE 5 % IN WATER 100 ML IV SCH ×4 (10:21→22:13)
[2018-02-16] MEDS ORDERED: amLODIPine BESYLATE 5 MG TABLET PO ONE (12:53)
[2018-02-16] MEDS ORDERED: POTASSIUM CHLORIDE 20 MEQ TABLET.SA PEG ONE (12:56)
[2018-02-16] MEDS: INSULIN GLARGINE,HUM.REC.ANLOG 100 UNITS/ML VIAL SC SCH (14:23)
[2018-02-16] MEDS: MUPIROCIN 22 APPL TUBE TP SCH ×2 (14:26→22:12)
--- NOTE | 2018-02-16 14:43 | PN ---
Subjective - Date and Time Seen Date: 02/16/18 Time: 14:20 Subjective Narrative: I feel a little better, but I still feel weak. Objective Objective Narrative: 32-year-old -[place] male correction patient with past medical history of type 2 diabetes, hypertension, quadriplegia secondary to cervical spine injury, seizure disorder was admitted for right lower lobe pneumonia hospital day #1, patient was evaluated at bedside and was found to be clinically stable and is showing improvement in his respiratory function and oxygenation. Vent settings were evaluated and modified per ABG results and weaning orders were placed to see how he tolerates. Patient was shown to have inadequately controlled dextrose levels so insulin therapy was modified. Dietitian was consulted for evaluation of diet and proper nutrition during the hospital stay. Patient has not had any fevers appears stronger and in better spirits. Follow- up labs demonstrated improvement of his potassium levels an additional tablet of Kdur was prescribed and follow-up labs were ordered for a.m. Patient's intranasal cultures demonstrate growth of MRSA therefore intranasal Bactroban was ordered. His hypertension was also ordered for elevated which might be secondary to IV K riders that were ordered during admission. We will monitor him him closely. - Review of Systems Generalized/Overall Review: Reports: Weakness EENTM: Reports: No Symptoms Reported Respiratory: Reports: Cough Cardiac: Reports: No Symptoms Reported Abdominal: Reports: Constipation Genitourinary Symptoms: Reports: No Symptoms Reported Musculoskeletal Complaints: Reports: No Symptoms Reported Neurological: Reports: Weakness, Pre-existing Deficit, Other - Px is quadriplegic Skin: Reports: No Symptoms Reported Endocrine: Reports: No Symptoms Reported - Vitals Vitals: Last Vital Signs Temp 36.8 C 02/16/18 09:00 Pulse 114 H 02/16/18 14:13 Resp 16 02/16/18 10:00 BP 169/74 H 02/16/18 14:13 Pulse Ox 95 02/16/18 10:00 - Abnormal Lab Findings Abnormal Lab Findings: Abnormal Lab Results 02/15/18 02/15/18 02/15/18 Range/Units 14:18 14:45 14:45 RBC 3.79 L (4.7-6.0) M/mm3 Hgb 11.6 L (13.5-18.0) gm/dL Hct 36.8 L (42.0-52.0) % MCHC 31.5 L (32-36) g/dl RDW 16.1 H (11.5-14.0) % MPV 12.0 H (8-11.3) fl Monocytes % 9.2 H (0.0-9) % Eosinophils % 3.4 H (0.0-3.0) % Lymphocytes # 1.21 L (1.5-3.5) k/mm3 pCO2 56.0 H (35.0-48.0) mmHg pO2 75.7 L (83.0-108.0) mmHg HCO3 37.0 H (21.0-28.0) mmol/L Total CO2 38.7 H (19.0-24.0) mmol/L Base Excess 10.8 H (-2.0-3.0) mmol/L ABG pH (7.35-7.45) Potassium 2.5 L (3.4-4.6) mmol/L Chloride 93 L (97-106) mmol/L Carbon Dioxide 44.5 H (24-32.6) mmol/L Anion Gap Less than 1.0 L (6.8-13.8) mmol/L BUN 33 H (6-23) mg/dL Creatinine (0.4-1.4) mg/dL Est GFR (Non-Af Amer) 268 H D (60-130) mL/min BUN/Creatinine Ratio 70.2 H (9.0-21.6) Random Glucose 226 H (70-110) mg/dL Lactic Acid, Venous (0.4-2.0) mmol/L Calcium Adj for Albumin 11.1 H (8.4-10.2) mg/dL Albumin 2.7 L (3.4-5.0) gm/dl Urine Blood (NEGATIVE) /ul Urine Nitrate (NEGATIVE) Ur Leukocyte Esterase (NEGATIVE) /ul 02/15/18 02/15/18 02/15/18 Range/Units 14:45 15:06 19:11 RBC (4.7-6.0) M/mm3 Hgb (13.5-18.0) gm/dL Hct (42.0-52.0) % MCHC (32-36) g/dl RDW (11.5-14.0) % MPV (8-11.3) fl Monocytes % (0.0-9) % Eosinophils % (0.0-3.0) % Lymphocytes # (1.5-3.5) k/mm3 pCO2 (35.0-48.0) mmHg pO2 (83.0-108.0) mmHg HCO3 42.7 H (21.0-28.0) mmol/L Total CO2 44.2 H (19.0-24.0) mmol/L Base Excess 18.3 H (-2.0-3.0) mmol/L ABG pH 7.57 H (7.35-7.45) Potassium (3.4-4.6) mmol/L Chloride (97-106) mmol/L Carbon Dioxide (24-32.6) mmol/L Anion Gap (6.8-13.8) mmol/L BUN (6-23) mg/dL Creatinine (0.4-1.4) mg/dL Est GFR (Non-Af Amer) (60-130) mL/min BUN/Creatinine Ratio (9.0-21.6) Random Glucose (70-110) mg/dL Lactic Acid, Venous 2.6 H* (0.4-2.0) mmol/L Calcium Adj for Albumin (8.4-10.2) mg/dL Albumin (3.4-5.0) gm/dl Urine Blood 5 H (NEGATIVE) /ul Urine Nitrate Positive H (NEGATIVE) Ur Leukocyte Esterase 100 H (NEGATIVE) /ul 02/16/18 02/16/18 02/16/18 Range/Units 05:10 05:10 08:05 RBC 3.85 L (4.7-6.0) M/mm3 Hgb 11.5 L (13.5-18.0) gm/dL Hct 36.6 L (42.0-52.0) % MCHC 31.4 L (32-36) g/dl RDW 16.2 H (11.5-14.0) % MPV 12.5 H (8-11.3) fl Monocytes % 10.4 H (0.0-9) % Eosinophils % 3.6 H (0.0-3.0) % Lymphocytes # 1.20 L (1.5-3.5) k/mm3 pCO2 55.1 H (35.0-48.0) mmHg pO2 72.9 L (83.0-108.0) mmHg HCO3 41.7 H (21.0-28.0) mmol/L Total CO2 43.4 H (19.0-24.0) mmol/L Base Excess 16.0 H (-2.0-3.0) mmol/L ABG pH 7.50 H (7.35-7.45) Potassium 3.2 L D (3.4-4.6) mmol/L Chloride 91 L (97-106) mmol/L Carbon Dioxide 39.0 H (24-32.6) mmol/L Anion Gap 6.2 L (6.8-13.8) mmol/L BUN (6-23) mg/dL Creatinine 0.39 L (0.4-1.4) mg/dL Est GFR (Non-Af Amer) 332 H D (60-130) mL/min BUN/Creatinine Ratio 46.2 H (9.0-21.6) Random Glucose 248 H (70-110) mg/dL Lactic Acid, Venous (0.4-2.0) mmol/L Calcium Adj for Albumin (8.4-10.2) mg/dL Albumin 2.5 L (3.4-5.0) gm/dl Urine Blood (NEGATIVE) /ul Urine Nitrate (NEGATIVE) Ur Leukocyte Esterase (NEGATIVE) /ul - EKG/Xray Findings XRAY: chest Interpretation: Reviewed by me - Bilateral interstitial edema with superimposed infection. - Exam Constitutional: Present: Alert, Oriented x3, Cooperative, No distress ENT Exam: Present: normal ENT inspection Neck: Present: non-tender, trachea midline, limited range of motion Breasts: Present: Exam deferred Respiratory: Present: chest non-tender, decreased breath sounds Cardiovascular/Chest: Present: normal peripheral pulses, regular rate, rhythm, no chest tenderness, no edema, no gallop, no JVD, no murmur Abdomen: Present: Normal bowel sounds, soft, nontender, nondistended, no rebound tenderness, obese /Rectal: Present: Exam deferred Extremity: Present: no pedal edema Skin Exam: Present: normal color, warm/dry, no cyanosis Lymphatic: Present: no adenopathy Neurologic: Present: motor weakness - Upper and lower extremity weakness due to cervical spine injury. Appearance: Present: appropriate appearance Eye contact: Present: cooperative, good eye contact, normal speech Thoughts: Present: normal thought pattern, no apparent hallucination Cauti Physician Documentation - Urinary Catheter Management Urethral (Barr) Urethral Indwelling: Yes Reason for Continuing Indwelling Catheter: Prolonged immobilization Assessment/Plan Plan Narrative: Patient will be monitored with continuing dextrose checks after optimization of his insulin. Follow-up labs were ordered for morning to reevaluate his potassium levels, and other electrolytes, and WBCs. Final culture results are pending. We will monitor him for respiratory function and optimal oxygenation after ventilator weaning orders were placed. We will continue with IV antibiotics for his pneumonia and reevaluate him in the morning. - Problems/Diagnosis (1) Right lower lobe pneumonia Problem: Acute (2) Urinary tract infection Problem: Acute (3) Tracheostomy dependence Problem: Chronic (4) Hypoxemia requiring supplemental oxygen Problem: Chronic (5) Diabetes mellitus Problem: Chronic (6) Quadriplegia following spinal cord injury Problem: Chronic (7) Hypokalemia Problem: Acute
[2018-02-16] MEDS: LEVOFLOXACIN IN DEXTROSE 5 % 750 MG/150 ML BAG IV SCH (16:54)
[2018-02-16] MEDS: AMITRIPTYLINE HCL 50 MG TABLET PEG SCH (22:20)
[2018-02-17] MEDS: ZOLPIDEM TARTRATE 10 MG TABLET PEG SCH (00:56)
[2018-02-17] MEDS: guaiFENesin/DEXTROMETHORPHAN 118 ML BTL PEG SCH ×2 (02:50→06:34)
[2018-02-17] MEDS: IPRATROPIUM BROMIDE 0.5 MG/2.5 ML VIAL.NEB IH SCH (06:16)
[2018-02-17] MEDS: LEVALBUTEROL HCL 0.63 MG/3 ML AMPUL IH SCH (06:17)
[2018-02-17] MEDS: SODIUM CHLORIDE FOR INHALATION 4 ML VIAL.NEB IH SCH (06:18)
[2018-02-17] MEDS: INSULIN LISPRO 100 UNITS/ML VIAL SC SCH ×4 (06:35→11:08)
[2018-02-17] MEDS: POTASSIUM CHLORIDE/NS 1,000 ML IV SCH (06:42)
[2018-02-17 06:51] LABS: Urine Bilirubin Negative (NEGATIVE); Urine Blood 50 /ul (NEGATIVE); Urine Ketone Negative (NEGATIVE); Urine Protein 100 mg/dL (NEGATIVE); Urine Urobilinogen Normal (NORMAL)
[2018-02-17 07:00] LABS: Urine Appearance Slightly Cloudy (CLEAR); Urine Color Yellow; Urine Nitrite Positive (NEGATIVE)
[2018-02-17 07:01] LABS: Urine Bacteria 2+
[2018-02-17] MEDS: FAMOTIDINE 20 MG in DEXTROSE 5 % IN WATER 100 ML IV SCH ×2 (07:29)
[2018-02-17] MEDS: PRO STAT SUGAR FREE PEG SCH (07:59)
[2018-02-17] MEDS: BACLOFEN 10 MG TABLET PEG SCH (07:59)
[2018-02-17] MEDS: RIVAROXABAN 20 MG TABLET PEG SCH (08:00)
[2018-02-17] MEDS: FUROSEMIDE 40 MG TABLET PEG SCH (08:00)
[2018-02-17] MEDS: FERROUS SULFATE 325 MG TABLET PEG SCH (08:00)
[2018-02-17] MEDS: HYDROCHLOROTHIAZIDE 25 MG TABLET PEG SCH (08:00)
[2018-02-17] MEDS: MUPIROCIN 22 APPL TUBE TP SCH (08:00)
[2018-02-17] MEDS: ACETAMINOPHEN 325 MG TABLET PEG SCH (08:00)
[2018-02-17] MEDS: CHLORHEXIDINE GLUCONATE 480 ML BTL MM SCH (08:01)
[2018-02-17] MEDS: METOPROLOL TARTRATE 25 MG TABLET PEG SCH (08:01)
[2018-02-17] MEDS: SENNOSIDES 8.6 MG TABLET PEG SCH (08:02)
[2018-02-17] MEDS: levETIRAcetam 100 MG/ML BTL PEG SCH (08:03)
[2018-02-17] MEDS: INSULIN GLARGINE,HUM.REC.ANLOG 100 UNITS/ML VIAL SC SCH (08:04)
[2018-02-17] MEDS: PREGABALIN 75 MG CAPSULE PO SCH (08:12)
[2018-02-17] MEDS ORDERED: MULTIVITAMINS 1 CAP CAPSULE PEG SCH (09:00)
[2018-02-17] MEDS ORDERED: guaiFENesin/DEXTROMETHORPHAN 118 ML BTL PEG SCH (10:00)
--- NOTE | 2018-02-17 10:23 | DS ---
(1) Right lower lobe pneumonia Problem: Resolved (2) Urinary tract infection Problem: Chronic (3) Tracheostomy dependence Problem: Chronic (4) Hypoxemia requiring supplemental oxygen Problem: Chronic (5) Diabetes mellitus Problem: Chronic (6) Quadriplegia following spinal cord injury Problem: Chronic (7) Hypokalemia Problem: Resolved Description of Stay: 32 y/o AA male admitted for Rt. lower lobe pneumonia was evaluated at bedside and was found to be afebrile and in no acute distress. Patient has shown clinical improvement since being admitted. He has not had any reoccurence of fever, cough has improved, and he is tolerating lower oxygen and requires less ventilatory support after oxygen was weaned. Final blood cultures were negative for any growth, however urine culture grew gram neg cocci, most likely pseudomonas which is not surprising since patient is a known carrier. Patient also grew MRSA in nares, and is a known carrier so bactroban was added to his treatment. He has been treated with IV antibiotics and he responded favorably. Therefore, given this clinical picture a decision to discharge back to the custodial with 5 additional days of antibiotics by PEG and Bactroban for 5 additional days has been made . All routine meds and previous ventilator settings will be resumed. Procedures Performed: none Results and Findings: Pending Mircobiology Results 02/15/18 15:05 Urine,Catheterized Urine Culture - Preliminary Gram Negative Bacilli 02/16/18 21:30 Suctioned Sputum Sputum Culture - Preliminary 02/15/18 14:30 Blood Blood Culture - Preliminary NO GROWTH 24 HOURS 02/15/18 14:45 Blood Blood Culture - Preliminary NO GROWTH 24 HOURS Lab Pending Results 02/15/18 14:18: pCO2 56.0 H, pO2 75.7 L, HCO3 37.0 H, Total CO2 38.7 H, Base Excess 10.8 H, ABG pH 7.44, ABG O2 Sat (Measured) 95.3 02/15/18 14:45: WBC 6.0, RBC 3.79 L, Hgb 11.6 L, Hct 36.8 L, MCV 97.1, MCH 30.6, MCHC 31.5 L, RDW 16.1 H, Plt Count 304, MPV 12.0 H, Immature Gran % (Auto) 0.20, Immature Gran # (Auto) 0.01, Neutrophils % 66.7, Lymphocytes % 20.3, Monocytes % 9.2 H, Eosinophils % 3.4 H, Basophils % 0.2, Nucleated RBC % 0.0, Neutrophils # 4.0, Lymphocytes # 1.21 L, Monocytes # 0.6, Eosinophils # 0.2, Absolute Basophils 0.0 02/15/18 14:45: Sodium 133, Plasma Sodium 135, Potassium 2.5 L, Chloride 93 L, Carbon Dioxide 44.5 H, Anion Gap Less than 1.0 L, BUN 33 H, Creatinine 0.47, Est GFR (Non-Af Amer) 268 H D, BUN/Creatinine Ratio 70.2 H, Random Glucose 226 H, Calcium 10.4, Calcium Adj for Albumin 11.1 H, Total Bilirubin 0.3, AST 17, ALT 58, Alkaline Phosphatase 91, Troponin I Less than 0.017, B-Natriuretic Peptide 102, Total Protein 7.4, Albumin 2.7 L 02/15/18 14:45: Lactic Acid, Venous 2.6 H* 02/15/18 15:06: Urine Color Pale yellow, Urine Appearance Clear, Urine pH 7.0, Ur Specific Butler 1.015, Urine Protein Negative, Urine Glucose (UA) Negative, Urine Ketones Negative, Urine Blood 5 H, Urine Nitrate Positive H, Urine Bilirubin Negative, Urine Urobilinogen Normal, Ur Leukocyte Esterase 100 H, Urine RBC 0-5, Urine WBC 0-5, Ur Epithelial Cells None seen, Urine Bacteria Trace, Urine Culture Comments Culture to follow 02/15/18 18:34: Lactic Acid, Venous 2.0 02/15/18 19:11: pCO2 47.5, pO2 89.9, HCO3 42.7 H, Total CO2 44.2 H, Base Excess 18.3 H, ABG pH 7.57 H, ABG O2 Sat (Measured) 97.7 02/16/18 05:10: WBC 5.9, RBC 3.85 L, Hgb 11.5 L, Hct 36.6 L, MCV 95.1, MCH 29.9, MCHC 31.4 L, RDW 16.2 H, Plt Count 273, MPV 12.5 H, Immature Gran % (Auto) 0.20, Immature Gran # (Auto) 0.01, Neutrophils % 65.0, Lymphocytes % 20.5, Monocytes % 10.4 H, Eosinophils % 3.6 H, Basophils % 0.3, Nucleated RBC % 0.0, Neutrophils # 3.8, Lymphocytes # 1.20 L, Monocytes # 0.6, Eosinophils # 0.2, Absolute Basophils 0.0 02/16/18 05:10: Sodium 133, Plasma Sodium 135, Potassium 3.2 L D, Chloride 91 L, Carbon Dioxide 39.0 H, Anion Gap 6.2 L, BUN 18, Creatinine 0.39 L, Est GFR (Non- Af Amer) 332 H D, BUN/Creatinine Ratio 46.2 H, Random Glucose 248 H, Calcium 9.2, Calcium Adj for Albumin 10.1, Total Bilirubin 0.3, AST 18, ALT 55, Alkaline Phosphatase 90, Total Protein 7.1, Albumin 2.5 L 02/16/18 08:05: pCO2 55.1 H, pO2 72.9 L, HCO3 41.7 H, Total CO2 43.4 H, Base Excess 16.0 H, ABG pH 7.50 H, ABG O2 Sat (Measured) 95.5 02/17/18 06:10: pCO2 40.5, HCO3 31.4 H, Total CO2 32.6 H, Base Excess 7.7 H, ABG pH 7.51 H, ABG O2 Sat (Measured) 96.6 02/17/18 06:25: Urine Color Yellow, Urine Appearance Slightly cloudy, Urine pH 8.0 H, Ur Specific Butler 1.020, Urine Protein 100 H, Urine Glucose (UA) 250 H, Urine Ketones Negative, Urine Blood 50 H, Urine Nitrate Positive H, Urine Bilirubin Negative, Prot Sulfosalicylic Acd 3+ H, Urine Urobilinogen Normal, Ur Leukocyte Esterase 75 H, Urine RBC 5-10 H, Urine WBC 10-25 H, Ur Epithelial Cells 0-5, Urine Bacteria 2+ H Discharge Location: [facility] Disposition: Intermediate Care Facility ICF Condition: Fair Level of Care: ICF Discharge Activity: Activity as tolerated Discharge Diet: General/regular food, Tube Feedings Referrals: Reyna Rey DO [Primary Care Provider] - Additional Patient Instructions (free text): Give patient vanilla glucerna with lunch and dinner everyday. Resume previous ventilator settings. Prescriptions (Any new or edited meds): Levofloxacin [Levaquin] 750 mg PO DAILY #5 tablet Mupirocin [Bactroban] 1 appl TP BID #1 tube Complete Home Medications List: Complete Home Medication List: Acetaminophen 21.3 ml PEG TID 05/26/17 Amitriptyline HCl [Elavil] 50 mg PEG HS 05/26/17 Baclofen 20 mg PEG TID 05/26/17 Chlorhexidine Gluconate [Peridex 0.12%] 15 ml MM BID 05/26/17 Lactobacillus Acidophilus [Acidophilus] 2 ea PEG BID 05/26/17 Polyethylene Glycol 3350 [Miralax] 17 gm PEG DAILY 05/26/17 Rivaroxaban [Xarelto] 20 mg PEG DAILY 05/26/17 Omeprazole [Prilosec] 10 ml PEG DAILY 08/25/17 Potassium Chloride 30 ml PEG BID 08/25/17 Zolpidem Tartrate 20 mg PEG HS 08/25/17 diphenhydrAMINE HCL [Benadryl Elixir] 12.5 mg PEG BID 08/25/17 Hydrochlorothiazide [Hydrodiuril] 25 mg PEG DAILY 09/23/17 Insulin Glargine,Hum.rec.anlog [Lantus] 10 unit SQ QAM 09/23/17 Insulin Lispro [Humalog] See Protocol SQ AC 09/23/17 Sennosides [Senna Laxative] 8.6 mg PEG BID 09/23/17 Levalbuterol HCl [Xopenex] 0.63 mg IH BID 10/06/17 Metoprolol Tartrate [Lopressor] 12.5 mg PEG BID 10/06/17 Montelukast Sodium [Singulair] 10 mg PEG DAILY 10/06/17 Sodium Chloride For Inhalation [Sodium Chloride 3% Inhalation Solution] 4 ml IH BID 10/06/17 Amino Acids/Protein Hydrolys [Pro-Stat Sugar Free Liquid] 30 ml PEG BID 02/13/18 Argin/Glut/Cahmb/Collag/Mv-Min [Allan Packet] 1 each PEG BID 02/13/18 Ferrous Sulfate 325 mg PEG BIDWM 02/13/18 Furosemide [Lasix] 40 mg PEG DAILY 02/13/18 HYDROcodone/ACETAMINOPHEN [Hydrocodone-Acetamin 5-325 mg] 1 each PEG Q4H PRN 02/13/18 Heparin Sodium,Porcine/Pf [Heparin 500 Unit/5 ml (100/ml)] 5 ml IV Q28D 02/13/18 Pregabalin [Lyrica] 8 ml PEG BID 02/13/18 levETIRAcetam [Levetiracetam] 10 ml PEG BID 02/13/18 0.9 % Sodium Chloride [Normal Saline Flush] 20 ml IJ Q28D 02/15/18 Cefuroxime Axetil [Ceftin] 500 mg PEG BID 02/15/18 Ipratropium [place] 0.2 mg IH BID 02/15/18 Ipratropium [place] 0.2 mg IH Q4H PRN 02/15/18 Levalbuterol HCl [Xopenex] 0.63 mg IH Q4H PRN 02/15/18 Nutritional Supplement [Osmolite 1.2 Florencio] 200 ml PEG Q6H 02/15/18 Whey Protein Isolate [Beneprotein] 1 each PEG DAILY 02/15/18 guaiFENesin/DEXTROMETHORPHAN [Sm Tussin Dm Liquid] 20 ml PEG Q4H 02/15/18 Acetaminophen [Tylenol] 1,000 mg PO Q6H PRN tablet 02/17/18 Levofloxacin [Levaquin] 750 mg PO DAILY #5 tablet 02/17/18 Mupirocin [Bactroban] 1 appl TP BID #1 tube 02/17/18
[2018-02-17 14:19] VITALS: BP 119/52
== END 2018-02-17 13:30 | DRG 193 ==
LOC: ER 13:51 → MS 17:19
PROVIDERS: ADMIT Family Medicine; ATTEND Family Medicine
CPT/HCPCS: 36415; 36600; 71010; 71045; 80048; 80053; 81001; 82803; 83519; 83605; 83880; 84145; 84484; 85025; 87040; 87070; 87077; 87081; 87086; 87186; 93005; 94640; 94664; 94762; 96365; 96366; 96367; 99285

== ENCOUNTER 2018-08-27 11:30 | Inpatient (IN) ==
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
[2018-08-27] MEDS ORDERED: NORMAL SALINE 1,000 ML IV ONE (11:59)
[2018-08-27 12:28] LABS: Hematocrit 27.1 % (42.0-52.0); Hemoglobin 8.2 gm/dL (13.5-18.0); Mean Cell Volume 102.7 fl (78-100); Mean Corpuscular Hemoglobin 31.1 pg (27-31); Mean Corpuscular Hgb Conc 30.3 g/dl (32-36); Mean Platelet Volume 12.7 fl (8-11.3); Neutrophil # 11.3 K/mm3 (1.3-6.0); Neutrophil % 84.4 % (42-75.0); Platelet Count 291 K/mm3 (150-450); Red Blood Count 2.64 M/mm3 (4.7-6.0); Red Cell Distribution Width 17.4 % (11.5-14.0); White Blood Count 13.4 K/mm3 (4.0-10.5)
[2018-08-27 12:40] LABS: Urine Appearance Slightly Cloudy (CLEAR); Urine Color Yellow
[2018-08-27 12:42] LABS: Urine Bilirubin Negative (NEGATIVE); Urine Blood 5 /ul (NEGATIVE); Urine Ketone Negative (NEGATIVE); Urine Nitrite Negative (NEGATIVE); Urine Protein Negative (NEGATIVE); Urine Urobilinogen Normal (NORMAL)
[2018-08-27 12:44] LABS: Urine Bacteria 1+; Urine RBC 0-5 /hpf (0-5); Urine WBC >50 /hpf (0-5)
[2018-08-27 12:52] LABS: Albumin * 1.9 gm/dl (3.4-5.0); Anion Gap 13.1 mmol/L (6.8-13.8); BUN/Creatinine Ratio 12.7 (9.0-21.6); Bilirubin, Total 0.6 mg/dL (0.0-1.1); Ca. Corrected For Albumin 9.3 mg/dL (8.4-10.2); Calcium * 7.9 mg/dL (7.9-10.9); Carbon Dioxide 32.1 mmol/L (24-32.6); Magnesium 1.1 mg/dL (1.2-2.8); Potassium 3.2 mmol/L (3.4-4.6); Total Protein 7.2 gm/dL (6.2-8.2)
[2018-08-27 13:05] LABS: CRP 17.3 mg/dL (0.0-0.9)
[2018-08-27] MEDS ORDERED: PIPERACILLIN SODIUM/TAZOBACTAM 3.375 GM in DEXTROSE 5 % IN WATER 100 ML IV ONE ×2 (13:05)
[2018-08-27] MEDS: NORMAL SALINE 1,000 ML IV PRN ×3 (13:20→18:57)
[2018-08-27] MEDS ORDERED: HYDROmorphone HCL 1 MG/ML DISP.SYRIN IV ONE (13:51)
[2018-08-27] MEDS ORDERED: ACETAMINOPHEN 500 MG TABLET PEG ONE (13:51)
[2018-08-27] MEDS: AZITHROMYCIN 500 MG in DEXTROSE 5 % IN WATER 250 ML IV SCH ×2 (15:13)
[2018-08-27] MEDS ORDERED: DEXTROSE 37.5 GM TUBE PO PRN (17:42)
[2018-08-27] MEDS ORDERED: ACETAMINOPHEN 325 MG TABLET PEG PRN (17:42)
[2018-08-27] MEDS ORDERED: NORMAL SALINE 1,000 ML IV PRN (17:56)
[2018-08-27] MEDS: LEVALBUTEROL HCL 1.25 MG/3 ML AMPUL IH PRN (18:05)
[2018-08-27] MEDS ORDERED: LEVALBUTEROL HCL 1.25 MG/3 ML AMPUL IH SCH ×2 (19:00→21:00)
[2018-08-27] MEDS: POTASSIUM CHLORIDE 40 MEQ/15 ML BTL PEG SCH (19:07)
[2018-08-27] MEDS: HYDROcodone/ACETAMINOPHEN 1 EACH TABLET PEG PRN (19:08)
[2018-08-27] MEDS ORDERED: AMITRIPTYLINE HCL 25 MG TABLET ONE (20:43)
[2018-08-27] MEDS: INSULIN LISPRO 100 UNITS/ML VIAL SC SCH (21:00)
[2018-08-27] MEDS: BACLOFEN 10 MG TABLET GT SCH (21:02)
[2018-08-27] MEDS: BUMETANIDE 1 MG TABLET GT SCH (21:02)
[2018-08-27] MEDS: AMITRIPTYLINE HCL 50 MG TABLET PEG SCH (21:03)
[2018-08-27] MEDS: DOCUSATE SODIUM 150 MG/15 ML BTL PEG SCH (21:03)
[2018-08-27] MEDS: LORATADINE 10 MG TABLET GT SCH (21:03)
[2018-08-27] MEDS: metFORMIN HCL 500 MG TABLET PEG SCH (21:04)
[2018-08-27] MEDS: APIXABAN 5 MG TABLET PO SCH (21:04)
[2018-08-27] MEDS: levETIRAcetam 100 MG/ML BTL PEG SCH (21:05)
[2018-08-27] MEDS: MIDODRINE HCL 2.5 MG TABLET PEG SCH (21:06)
[2018-08-27] MEDS: CHLORHEXIDINE GLUCONATE 480 ML BTL MM SCH (21:06)
[2018-08-27] MEDS: METOPROLOL TARTRATE 50 MG TABLET PEG SCH (21:06)
[2018-08-27] MEDS: SIMETHICONE 80 MG TAB.CHEW PEG SCH (21:06)
[2018-08-27] MEDS: ZOLPIDEM TARTRATE 10 MG TABLET PEG SCH (23:29)
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
[2018-08-28] MEDS: NORMAL SALINE 1,000 ML IV PRN ×3 (03:05→23:52)
[2018-08-28] MEDS: LEVALBUTEROL HCL 1.25 MG/3 ML AMPUL IH SCH ×2 (06:16→18:00)
[2018-08-28] MEDS: INSULIN LISPRO 100 UNITS/ML VIAL SC SCH (06:44)
[2018-08-28] MEDS: PREGABALIN 75 MG CAPSULE PEG SCH ×3 (06:44→23:49)
[2018-08-28] MEDS ORDERED: NORMAL SALINE IV ONE (07:12)
--- NOTE | 2018-08-28 07:36 | PN ---
Subjective - Date and Time Seen Date: 08/28/18 Time: 07:21 Subjective Narrative: Pt. only complaint this am is he's tired because he didn't sleep well. Denies any other sx other than cough and breathing issues. Nursing reports no significant issues overnight other than trach care. Objective Objective Narrative: This am he looks tired - is arousable to voice but quickly closes eyes again. monitor showing SBP 80's and HR 130. He won't report many sx as he's a cervical spine injury - quadraplegic - Review of Systems Generalized/Overall Review: Reports: Fatigue EENTM: Reports: No Symptoms Reported Respiratory: Reports: Cough. Denies: Shortness of Breath Cardiac: Denies: Chest Pain Abdominal: Reports: No Symptoms Reported Genitourinary Symptoms: Reports: No Symptoms Reported Musculoskeletal Complaints: Reports: No Symptoms Reported Neurological: Reports: No Symptoms Reported Skin: Reports: No Symptoms Reported Endocrine: Reports: No Symptoms Reported - Vitals Vitals: Last Vital Signs Temp 37.1 C 08/28/18 03:08 Pulse 124 H 08/28/18 06:24 Resp 16 08/28/18 06:24 BP 98/53 08/28/18 03:08 Pulse Ox 98 08/28/18 06:16 - Abnormal Lab Findings Abnormal Lab Findings: Abnormal Lab Results 08/27/18 08/27/18 08/27/18 Range/Units 11:55 11:55 11:55 WBC 13.4 H (4.0-10.5) K/mm3 RBC 2.64 L (4.7-6.0) M/mm3 Hgb 8.2 L (13.5-18.0) gm/dL Hct 27.1 L (42.0-52.0) % MCV 102.7 H (78-100) fl MCH 31.1 H (27-31) pg MCHC 30.3 L (32-36) g/dl RDW 17.4 H (11.5-14.0) % MPV 12.7 H (8-11.3) fl Immature Gran # (Auto) 0.06 H (0.000-0.0310) K/mm3 Neutrophils % 84.4 H (42-75.0) % Lymphocytes % 5.1 L (20-51) % Monocytes % 9.1 H (0.0-9) % Neutrophils # 11.3 H (1.3-6.0) K/mm3 Lymphocytes # 0.69 L (1.5-3.5) k/mm3 Monocytes # 1.2 H (0.0-1.0) k/mm3 ESR (0-10) mm/hr Potassium 3.2 L D (3.4-4.6) mmol/L Chloride 91 L (97-106) mmol/L Est GFR (Non-Af Amer) 190 H (60-130) mL/min Random Glucose 190 H D (70-110) mg/dL Lactic Acid, Venous 7.3 H* (0.4-2.0) mmol/L Magnesium 1.1 L (1.2-2.8) mg/dL C-Reactive Prot, Quant 17.3 H (0.0-0.9) mg/dL Albumin 1.9 L (3.4-5.0) gm/dl Urine Blood (NEGATIVE) /ul Ur Leukocyte Esterase (NEGATIVE) /ul Urine WBC (0-5) /hpf Urine Bacteria (NONE) Mycoplasma pneumon IgM (NonReactive) 08/27/18 08/27/18 08/27/18 Range/Units 11:55 11:55 12:34 WBC (4.0-10.5) K/mm3 RBC (4.7-6.0) M/mm3 Hgb (13.5-18.0) gm/dL Hct (42.0-52.0) % MCV (78-100) fl MCH (27-31) pg MCHC (32-36) g/dl RDW (11.5-14.0) % MPV (8-11.3) fl Immature Gran # (Auto) (0.000-0.0310) K/mm3 Neutrophils % (42-75.0) % Lymphocytes % (20-51) % Monocytes % (0.0-9) % Neutrophils # (1.3-6.0) K/mm3 Lymphocytes # (1.5-3.5) k/mm3 Monocytes # (0.0-1.0) k/mm3 ESR Greater than 120 H (0-10) mm/hr Potassium (3.4-4.6) mmol/L Chloride (97-106) mmol/L Est GFR (Non-Af Amer) (60-130) mL/min Random Glucose (70-110) mg/dL Lactic Acid, Venous (0.4-2.0) mmol/L Magnesium (1.2-2.8) mg/dL C-Reactive Prot, Quant (0.0-0.9) mg/dL Albumin (3.4-5.0) gm/dl Urine Blood 5 H (NEGATIVE) /ul Ur Leukocyte Esterase 500 H (NEGATIVE) /ul Urine WBC >50 H (0-5) /hpf Urine Bacteria 1+ H (NONE) Mycoplasma pneumon IgM Reactive H (NonReactive) 08/27/18 Range/Units 14:49 WBC (4.0-10.5) K/mm3 RBC (4.7-6.0) M/mm3 Hgb (13.5-18.0) gm/dL Hct (42.0-52.0) % MCV (78-100) fl MCH (27-31) pg MCHC (32-36) g/dl RDW (11.5-14.0) % MPV (8-11.3) fl Immature Gran # (Auto) (0.000-0.0310) K/mm3 Neutrophils % (42-75.0) % Lymphocytes % (20-51) % Monocytes % (0.0-9) % Neutrophils # (1.3-6.0) K/mm3 Lymphocytes # (1.5-3.5) k/mm3 Monocytes # (0.0-1.0) k/mm3 ESR (0-10) mm/hr Potassium (3.4-4.6) mmol/L Chloride (97-106) mmol/L Est GFR (Non-Af Amer) (60-130) mL/min Random Glucose (70-110) mg/dL Lactic Acid, Venous 6.0 H* (0.4-2.0) mmol/L Magnesium (1.2-2.8) mg/dL C-Reactive Prot, Quant (0.0-0.9) mg/dL Albumin (3.4-5.0) gm/dl Urine Blood (NEGATIVE) /ul Ur Leukocyte Esterase (NEGATIVE) /ul Urine WBC (0-5) /hpf Urine Bacteria (NONE) Mycoplasma pneumon IgM (NonReactive) - EKG/Xray Findings EKG: supravent. tachycardia - Exam Constitutional: Present: Alert, Oriented x3, Cooperative, Lethargic, Obese ENT Exam: Present: hearing grossly normal Neck: Present: supple Respiratory: Present: crackles - R lung field, rhonchi - L lung field. Cardiovascular/Chest: Present: no murmur, tachycardia, edema Abdomen: Present: Normal bowel sounds, firm, distended /Rectal: Present: Exam deferred Skin Exam: Present: other - bullae bottom of L foot - more mottled than before Neurologic: Present: comparison shopper II-XII nml as tested, depressed affect Appearance: Present: no memory impairment Eye contact: Present: normal speech, avoids eye contact Thoughts: Present: normal thought pattern Cauti Physician Documentation - Urinary Catheter Management Suprapubic Urethral Indwelling: Yes Reason for Continuing Indwelling Catheter: Other - cervical spine injury - quadraplegic, chronic indwelling catheter. Date of Insertion: 08/27/18 Time of Insertion: 13:25 Date of Removal: 08/27/18 Time of Removal: 13:25 Assessment/Plan - Problems/Diagnosis (1) Pneumonia Problem: Acute Qualifiers: Pneumonia type: due to Mycoplasma pneumoniae Laterality: right Lung location: lower lobe of lung Qualified Code(s): J15.7 - Pneumonia due to Mycoplasma pneumoniae Narrative: based on exam and cxr and labs, appears to be mycoplasma pneumonia - azithromycin is appropriate coverage. part of my concern though is whether this is all that is going on with the patient. He has multiple wounds and with a septic picture and ESR > 120, these findings would be unusual for a mycoplasma pneumonia. he was given zosyn in ER and I will continue that for now, based on previous cultures as his hypotension fits more a gram negative picture. (2) Sepsis Problem: Acute Qualifiers: Sepsis type: sepsis due to unspecified organism Qualified Code(s): A41.9 - Sepsis, unspecified organism Narrative: given the hypotension, feel this is more likely due to gram - bacteria. will repeat bollus, CBC and lactic acid. add zosyn to antibiotics. monitor closely. May need to be in SCU for close monitoring. he has multiple issues that increase his risk for infections, including DM, quadraplegia (immobility), on vent, indwelling catheter and chronic wounds and resistant bacteria in previous cultures. (3) Open wound Problem: Acute Narrative: could be source of infection. No concerns a few days ago when I saw him in the NH, but he has multiple issues that increase his risk for infections, including DM, quadraplegia (immobility), on vent, indwelling catheter and chronic wounds and resistant bacteria in previous cultures. (4) Diabetes mellitus Problem: Chronic Qualifiers: Diabetes mellitus type: type 2 Diabetes mellitus nursing home insulin use: with nursing home use Diabetes mellitus complication status: with unspecified complications Qualified Code(s): E11.8 - Type 2 diabetes mellitus with unspecified complications; Z79.4 - halfway (current) use of insulin Narrative: sugars for now are ok. will monitor, use SSI to cover sugars. (5) Severe protein-calorie malnutrition Problem: Chronic Narrative: will get dietary consult to get recommendations for improving this. (6) Spinal cord injury at C1-C4 level Problem: Chronic Qualifiers: Encounter type: subsequent encounter Qualified Code(s): S14.101D - Unspecified injury at C1 level of cervical spinal cord, subsequent encounter (7) Ventilator dependent Problem: Chronic (8) Discharge planning issues Problem: Acute Narrative: anticipate him being here for several days.
[2018-08-28 08:15] LABS: Albumin * 1.8 gm/dl (3.4-5.0); Anion Gap 11.9 mmol/L (6.8-13.8); BUN/Creatinine Ratio 22.2 (9.0-21.6); Bilirubin, Total 0.6 mg/dL (0.0-1.1); Ca. Corrected For Albumin 8.2 mg/dL (8.4-10.2); Calcium * 6.8 mg/dL (7.9-10.9); Carbon Dioxide 31.3 mmol/L (24-32.6); Mean Cell Volume 102.9 fl (78-100); Mean Corpuscular Hemoglobin 32.1 pg (27-31); Mean Corpuscular Hgb Conc 31.2 g/dl (32-36); Mean Platelet Volume 12.8 fl (8-11.3); Neutrophil # 9.4 K/mm3 (1.3-6.0); Neutrophil % 81.2 % (42-75.0); Platelet Count 262 K/mm3 (150-450); Potassium 3.2 mmol/L (3.4-4.6); Red Blood Count 2.43 M/mm3 (4.7-6.0); Red Cell Distribution Width 17.5 % (11.5-14.0); White Blood Count 11.5 K/mm3 (4.0-10.5)
[2018-08-28 08:28] LABS: Hemoglobin 7.8 gm/dL (13.5-18.0)
[2018-08-28] MEDS ORDERED: FUROSEMIDE 10 MG/ML VIAL IV PRN (08:35)
[2018-08-28] MEDS: PIPERACILLIN SODIUM/TAZOBACTAM 3.375 GM in DEXTROSE 5 % IN WATER 100 ML IV SCH ×6 (08:47→23:53)
[2018-08-28] MEDS: POLYETHYLENE GLYCOL 3350 17 GM PACKET PO SCH (08:50)
[2018-08-28] MEDS: metFORMIN HCL 500 MG TABLET PEG SCH ×2 (08:51→09:09)
[2018-08-28] MEDS: APIXABAN 5 MG TABLET PO SCH ×2 (08:51→20:56)
[2018-08-28] MEDS: MIDODRINE HCL 2.5 MG TABLET PEG SCH ×4 (08:51→21:01)
[2018-08-28] MEDS: TOLTERODINE TARTRATE 4 MG CAPSULE PO SCH (08:52)
[2018-08-28] MEDS: BACLOFEN 10 MG TABLET GT SCH ×4 (08:52→20:54)
[2018-08-28] MEDS: SIMETHICONE 80 MG TAB.CHEW PEG SCH ×4 (08:52→21:00)
[2018-08-28] MEDS: SACCHAROMYCES BOULARDII 250 MG CAPSULE PEG SCH ×2 (08:53→20:57)
[2018-08-28] MEDS: MAGNESIUM OXIDE 400 MG TABLET PEG SCH ×3 (08:54→17:26)
[2018-08-28] MEDS: BUMETANIDE 1 MG TABLET GT SCH ×2 (08:54→20:54)
[2018-08-28] MEDS: DOCUSATE SODIUM 150 MG/15 ML BTL PEG SCH ×2 (08:55→20:55)
[2018-08-28] MEDS: levETIRAcetam 100 MG/ML BTL PEG SCH ×2 (08:55→20:57)
[2018-08-28] MEDS ORDERED: MONTELUKAST SODIUM 10 MG TABLET PEG SCH (09:00)
[2018-08-28] MEDS ORDERED: INSULIN GLARGINE,HUM.REC.ANLOG 100 UNITS/ML VIAL SC SCH (09:00)
[2018-08-28] MEDS ORDERED: DILTIAZEM HCL 120 MG CAP.SR.24H PO SCH (09:00)
[2018-08-28] MEDS: METOPROLOL TARTRATE 50 MG TABLET PEG SCH ×2 (09:06→20:58)
[2018-08-28] MEDS: OMEPRAZOLE 2 MG/ML BTL PEG SCH (09:06)
[2018-08-28] MEDS ORDERED: MAGNESIUM SULFATE IN WATER 50 ML IV ONE (09:06)
[2018-08-28] MEDS: METOLAZONE 2.5 MG TABLET PEG SCH (09:09)
[2018-08-28] MEDS: POTASSIUM CHLORIDE 40 MEQ/15 ML BTL PEG SCH (09:10)
[2018-08-28] MEDS ORDERED: CALCIUM CARBONATE 500 MG TAB.CHEW PO PRN (09:10)
[2018-08-28] MEDS: CHLORHEXIDINE GLUCONATE 480 ML BTL MM SCH ×2 (09:21→21:00)
[2018-08-28] MEDS: POTASSIUM CHLORIDE IN WATER 100 ML IV SCH ×4 (11:05→14:13)
--- NOTE | 2018-08-28 11:33 | CONS ---
- Reason for consultation (1) Ulcer of left foot Date of Service: 08/28/18 (2) Blister of left foot Date of Service: 08/28/18 HPI - General Date of Service: 08/28/18 Narrative: Pt evaluated at bedside for a blister to the plantar surface of the left foot that has been increasing in size. He resides at [facility], where they have been monitoring this blister for the last 2 weeks. It appears they are painting the skin with betadine. There has been no drainage from the blister. He was brought to the ED yesterday, and was admitted with pnuemonia and sepsis. On presentation to the ED, he was found to have h/o sacral decubitus ulcer, as well as this blister. I was consulted for care. - History of Present Illness Allergies/Adverse Reactions: Allergies morphine Allergy (Verified 08/10/18 11:35) Opioids - Morphine Analogues Allergy (Verified 08/10/18 11:35) Home Medications: Home Medications Medication Instructions Recorded Last Taken Amitriptyline HCl [Elavil] 50 mg PEG HS 05/26/17 Unknown Chlorhexidine Gluconate [Peridex 15 ml MM BID 05/26/17 Unknown 0.12%] Polyethylene Glycol 3350 [Miralax] 17 gm PEG DAILY 05/26/17 Unknown Omeprazole [Prilosec] 10 ml PEG DAILY 08/25/17 Unknown Zolpidem Tartrate 10 mg PEG HS 08/25/17 Unknown Insulin Lispro [Humalog] See Protocol SQ ACHS 09/23/17 Unknown Montelukast Sodium [Singulair] 10 mg PEG DAILY 10/06/17 Unknown Heparin Sodium,Porcine/Pf [Heparin 5 ml IV Q28D 02/13/18 Unknown 500 Unit/5 ml (100/ml)] Pregabalin [Lyrica] 7.5 ml PEG BID 02/13/18 Unknown 0.9 % Sodium Chloride [Normal 20 ml IJ Q28D 02/15/18 Unknown Saline Flush] guaiFENesin/DEXTROMETHORPHAN [Sm 20 ml PEG Q4H 02/15/18 Unknown Tussin Dm Liquid] baclofen 20 mg tablet 10 mg FEEDING TUBE QID tab 04/26/18 Unknown Acetaminophen [Tylenol] 650 mg PEG QID PRN 08/09/18 Unknown Apixaban [Eliquis] 5 mg PEG BID 08/09/18 Unknown Diltiazem HCl [Diltiazem 24Hr Cd] 120 mg PEG DAILY 08/09/18 Unknown Docusate Sodium [Diocto] 10 ml PEG BID 08/09/18 Unknown HYDROcodone/ACETAMINOPHEN 1 tab FEEDING TUBE QID PRN 08/09/18 Unknown [Hydrocodone-Acetamin 5-325 mg] Levalbuterol HCl [Xopenex] 1.25 mg INHALATION BID 08/09/18 Unknown Magnesium Oxide [Mag-Oxide] 400 mg PEG TID 08/09/18 Unknown Metoprolol Tartrate [Lopressor] 50 mg PO BID 08/09/18 Unknown Midodrine HCl 10 mg PEG QID 08/09/18 Unknown levETIRAcetam [Keppra Solution] 10 ml PEG BID 08/09/18 Unknown metFORMIN HCL [Metformin HCl] 500 mg PEG BID 08/09/18 Unknown bumetanide 2 mg tablet 2 mg FEEDING TUBE BID tab 08/10/18 Unknown metolazone 2.5 mg tablet 2.5 mg FEEDING TUBE DAILY tab 08/10/18 Unknown tolterodine 2 mg tablet 4 mg FEEDING TUBE DAILY tab 08/10/18 Unknown Cetirizine HCl 10 mg PO HS 08/27/18 Unknown Dextrose [Glutose 15] 37.5 gm PO PRN PRN 08/27/18 Unknown Insulin Degludec [Tresiba 12 unit SQ DAILY 08/27/18 Unknown Flextouch U-100] Levalbuterol HCl [Xopenex] 1.25 mg INHALATION Q4H PRN 08/27/18 Unknown Potassium Chloride 45 ml PO TID 08/27/18 Unknown Simethicone [Gas Relief] 80 mg PO QID 08/27/18 Unknown Sod Phos Di, [place]/K Phos [place] 250 mg PEG BID 08/27/18 Unknown [Virt-Phos 250 Neutral Tablet] Whey Protein Isolate [Resource 1 ea PO BID 08/27/18 Unknown Beneprotein] Procedures Insertion of Infusion Device into Left Elbow Region, Percutaneous Approach (08/25/17) Insertion of Infusion Device into Left Foot Vein, Percutaneous Approach (08/25/17) Measurement of Arterial Saturation, Peripheral, Percutaneous Approach (08/08/18) Medications - Medications Current Medications: Current Medications Hydrocodone Bitart/Acetaminophen ([place] 5-325) 1 each PEG QID PRN PRN Reason: Pain Stop: 09/26/18 17:43 Last Admin: 08/27/18 19:08 Dose: 1 each Documented by: Amitriptyline HCl (Elavil) 50 mg PEG HS [facility] Stop: 09/26/18 21:01 Last Admin: 08/27/18 21:03 Dose: 50 mg Documented by: Apixaban (Eliquis) 5 mg PO BID [facility] Stop: 09/26/18 21:01 Last Admin: 08/28/18 08:51 Dose: 5 mg Documented by: Baclofen (Baclofen) 10 mg GT QID [facility] Stop: 09/26/18 21:01 Last Admin: 08/28/18 08:52 Dose: 10 mg Documented by: Bumetanide (Bumex) 2 mg GT BID [facility] Stop: 09/26/18 21:01 Last Admin: 08/28/18 08:54 Dose: 2 mg Documented by: Chlorhexidine Gluconate (Periogard Oral Rinse 0.12%) 15 ml MM BID [facility] Stop: 09/26/18 21:01 Last Admin: 08/28/18 09:21 Dose: 15 ml Documented by: Docusate Sodium (Colace Liquid) 100 mg PEG BID [facility] Stop: 09/26/18 21:01 Last Admin: 08/28/18 08:55 Dose: 100 mg Documented by: Sodium Chloride (Sodium Chloride 0.9%) 1,000 mls @ 999 mls/hr IV .Q1H1M PRN PRN Reason: HYDRATION Stop: 09/26/18 12:55 Last Infusion: 08/27/18 17:57 Dose: Infused Documented by: Azithromycin 500 mg/ Dextrose/ (Water) 250 mls @ 250 mls/hr IV Q24H [facility]; Protocol Stop: 09/26/18 14:16 Last Infusion: 08/27/18 16:19 Dose: Infused Documented by: Sodium Chloride (Sodium Chloride 0.9%) 1,000 mls @ 126 mls/hr IV .Q7H57M PRN PRN Reason: HYDRATION Stop: 09/26/18 17:57 Last Infusion: 08/28/18 07:15 Dose: 0 mls/hr Documented by: Piperacillin Sod/Tazobactam (Sod 3.375 gm/ Dextrose/Water) 100 mls @ 25 mls/hr IV Q8H [facility]; Protocol Stop: 09/27/18 07:46 Last Admin: 08/28/18 08:47 Dose: 25 mls/hr Documented by: Potassium Chloride/Water (Kcl 10 Meq/100 Ml Piggyback) 100 mls @ 100 mls/hr IV Q1H [facility] Stop: 08/28/18 11:59 Last Admin: 08/28/18 11:05 Dose: 100 mls/hr Documented by: Insulin Glargine (Lantus) 12 units SC DAILY [facility] Stop: 09/27/18 09:01 Last Admin: 08/28/18 09:07 Dose: Not Given Documented by: Insulin Human Lispro (Humalog) 0 units SC ACHS [facility]; Protocol Stop: 09/26/18 21:01 Last Admin: 08/28/18 06:44 Dose: Not Given Documented by: Levalbuterol HCl (Xopenex) 1.25 mg IH Q4H PRN PRN Reason: Shortness Of Breath/Wheezing Stop: 09/26/18 17:43 Last Admin: 08/27/18 18:05 Dose: 1.25 mg Documented by: Levalbuterol HCl (Xopenex) 1.25 mg IH BIDRT [facility] Stop: 09/27/18 07:01 Last Admin: 08/28/18 06:16 Dose: 1.25 mg Documented by: Levetiracetam (Keppra Solution) 1,000 mg PEG BID [facility] Stop: 09/26/18 21:01 Last Admin: 08/28/18 08:55 Dose: 1,000 mg Documented by: Loratadine (Claritin) 10 mg GT HS [facility] Stop: 09/26/18 21:01 Last Admin: 08/27/18 21:03 Dose: 10 mg Documented by: Magnesium Oxide (Mag-Ox 400) 400 mg PEG TID [facility] Stop: 09/27/18 09:01 Last Admin: 08/28/18 08:54 Dose: 400 mg Documented by: Metolazone (Zaroxolyn) 2.5 mg PEG DAILY [facility] Stop: 09/27/18 09:01 Last Admin: 08/28/18 09:09 Dose: 2.5 mg Documented by: Metoprolol Tartrate (Lopressor) 50 mg PEG BID [facility] Stop: 09/26/18 21:01 Last Admin: 08/28/18 09:06 Dose: 50 mg Documented by: Midodrine (Proamatine) 10 mg PEG QID [facility] Stop: 09/26/18 21:01 Last Admin: 08/28/18 08:51 Dose: 10 mg Documented by: Beneprotein 1 ea PEG BID [facility] Stop: 09/26/18 21:01 Last Admin: 08/28/18 08:52 Dose: Not Given Documented by: Virt-Phos 250 (Neutral Tablet) 250 mg PEG BID [facility] Stop: 09/26/18 21:01 Last Admin: 08/28/18 08:52 Dose: Not Given Documented by: Omeprazole (Prilosec) 20 mg PEG DAILY [facility] Stop: 09/27/18 09:01 Last Admin: 08/28/18 09:06 Dose: 20 mg Documented by: Polyethylene Glycol (Miralax) 17 gm PO DAILY [facility] Stop: 09/27/18 09:01 Last Admin: 08/28/18 08:50 Dose: 17 gm Documented by: Pregabalin (Lyrica) 150 mg PEG BID [facility] Stop: 09/26/18 21:01 Last Admin: 08/28/18 09:06 Dose: 150 mg Documented by: Saccharomyces Boulardii (Florastor) 250 mg PEG BID [facility] Stop: 09/27/18 09:01 Last Admin: 08/28/18 08:53 Dose: 250 mg Documented by: Simethicone (Mylicon Chewable Tablets) 80 mg PEG QID [facility] Stop: 09/26/18 21:01 Last Admin: 08/28/18 08:52 Dose: 80 mg Documented by: Tolterodine Tartrate (Detrol La) 4 mg PO DAILY [facility] Stop: 09/27/18 09:01 Last Admin: 08/28/18 08:52 Dose: 4 mg Documented by: Zolpidem Tartrate (Ambien) 10 mg PEG HS [facility] Stop: 09/26/18 21:01 Last Admin: 08/27/18 23:29 Dose: 10 mg Documented by: Review of Systems - Review of Systems Generalized/Overall Review: Present: Weakness Respiratory: Present: Shortness of Breath Cardiac: Present: Edema Neurological: Present: Numbness, Weakness Skin: Present: Other - blister to plantar left foot Physical Examination - Exam Vital Signs: Vital Signs - Last Taken Temp 37.8 C 08/28/18 10:18 Pulse 103 H 08/28/18 10:18 Resp 18 08/28/18 10:18 BP 118/51 08/28/18 10:18 Pulse Ox 93 08/28/18 10:18 O2 Oxygen Delivery Method Trach Collar Constitutional: Present: Alert, Cooperative Peripheral Pulses: dorsalis-pedis (L): 2+ Extremity: Present: lower extremity edema Skin Exam: Present: other - Large bullous lesion to plantar lateral surface of left foot measuring 7 x 13 cm. Upon lancing, copious serosanguinous drainage is expressed. Blister is de-roofed, revealing breakdown of skin only, still with visible skin lines, no subcutaneous fat tissue exposed. Surrounding tissue with slight hyperkeratosis, otherwise pink, intact. No exposed tendon or bone. Neurologic: Present: sensory deficit Appearance: Present: appropriate appearance Eye contact: Present: cooperative - Results and Findings: Lab/Microbiology results last 24 hrs: Abnormal/Pending Laboratory Last 24 HRS 08/28/18 08/28/18 08/28/18 08:55 07:55 07:55 WBC 11.5 H RBC 2.43 L Hgb 7.8 L* Hct 25.0 L MCV 102.9 H MCH 32.1 H MCHC 31.2 L RDW 17.5 H MPV 12.8 H Immature Gran % (Auto) 0.50 H Immature Gran # (Auto) 0.06 H Neutrophils % 81.2 H Lymphocytes % 8.1 L Monocytes % Neutrophils # 9.4 H Lymphocytes # 0.93 L Monocytes # ESR Potassium 3.2 L Chloride Creatinine 0.36 L Est GFR (Non-Af Amer) 362 H D BUN/Creatinine Ratio 22.2 H Random Glucose Lactic Acid, Venous Calcium 6.8 L Calcium Adj for Albumin 8.2 L Magnesium C-Reactive Prot, Quant Total Protein 6.0 L Albumin 1.8 L Urine Blood Ur Leukocyte Esterase Urine WBC Urine Bacteria Mycoplasma pneumon IgM Crossmatch See Detail 08/27/18 08/27/18 08/27/18 14:49 12:34 11:55 WBC RBC Hgb Hct MCV MCH MCHC RDW MPV Immature Gran % (Auto) Immature Gran # (Auto) Neutrophils % Lymphocytes % Monocytes % Neutrophils # Lymphocytes # Monocytes # ESR Greater than 120 H Potassium Chloride Creatinine Est GFR (Non-Af Amer) BUN/Creatinine Ratio Random Glucose Lactic Acid, Venous 6.0 H* Calcium Calcium Adj for Albumin Magnesium C-Reactive Prot, Quant Total Protein Albumin Urine Blood 5 H Ur Leukocyte Esterase 500 H Urine WBC >50 H Urine Bacteria 1+ H Mycoplasma pneumon IgM Crossmatch 08/27/18 08/27/18 08/27/18 11:55 11:55 11:55 WBC RBC Hgb Hct MCV MCH MCHC RDW MPV Immature Gran % (Auto) Immature Gran # (Auto) Neutrophils % Lymphocytes % Monocytes % Neutrophils # Lymphocytes # Monocytes # ESR Potassium 3.2 L D Chloride 91 L Creatinine Est GFR (Non-Af Amer) 190 H BUN/Creatinine Ratio Random Glucose 190 H D Lactic Acid, Venous 7.3 H* Calcium Calcium Adj for Albumin Magnesium 1.1 L C-Reactive Prot, Quant 17.3 H Total Protein Albumin 1.9 L Urine Blood Ur Leukocyte Esterase Urine WBC Urine Bacteria Mycoplasma pneumon IgM Reactive H Crossmatch 08/27/18 11:55 WBC 13.4 H RBC 2.64 L Hgb 8.2 L Hct 27.1 L MCV 102.7 H MCH 31.1 H MCHC 30.3 L RDW 17.4 H MPV 12.7 H Immature Gran % (Auto) Immature Gran # (Auto) 0.06 H Neutrophils % 84.4 H Lymphocytes % 5.1 L Monocytes % 9.1 H Neutrophils # 11.3 H Lymphocytes # 0.69 L Monocytes # 1.2 H ESR Potassium Chloride Creatinine Est GFR (Non-Af Amer) BUN/Creatinine Ratio Random Glucose Lactic Acid, Venous Calcium Calcium Adj for Albumin Magnesium C-Reactive Prot, Quant Total Protein Albumin Urine Blood Ur Leukocyte Esterase Urine WBC Urine Bacteria Mycoplasma pneumon IgM Crossmatch Culture 08/27/18 12:30 Urine Culture - Preliminary Urine,Catheterized Gram Negative Bacilli 08/27/18 14:30 - Final Nares MRSA Positive - Assessments/Findings (1) Ulcer of left foot Diagnosis(s): Exposed following de-bear of blister to the plantar foot. Instructions on care as below. Problem: Acute Qualifiers: Non-pressure ulcer stage: limited to breakdown of skin Qualified Code(s): L97.521 - Non-pressure chronic ulcer of other part of left foot limited to breakdown of skin (2) Blister of left foot Diagnosis(s): Discussed with patient at bedside severity of current blister and treatment options moving forward. It is my fear that if we leave this blister intact, it will continue to increase in size and could potentially begin to develop a deeper insult to the soft tissues to the plantar surface of the foot. It is my recommendation that we abhinav, at minimum, this blister to drain fluid to help reduce risk of further tissue damage. Pending appearance of fluid once this blister is lanced, we may need to completely de-roof this blister to fully evaluate underlying soft tissues. Patient is in agreement with lancing and possibly de-bear of this blister. The skin is prepped with Betadine. A #15 blade is utilized to abhinav this blister at the most proximal aspect. Copious amount of serosanguineous drainage is expressed from the lanced area. A forceps is utilized to open the lanced skin to assess the tissues underlying the roof of the blister, and tissues do appear to be intact in this area. It was it is felt that patient would benefit more from completely de-bear this blister to help protect from re-accumulation of fluid and recurrent blister formation. The entirety of the blister is deroofed. Upon de-bear of this blister, the underlying tissues are evaluated and there is noted to be only breakdown of the outer layers of skin. Skin lines are still visible under the roof of this blister. A tissue culture is taken from beneath this blistered area and will be sent for further evaluation. We will continue on current antibiotics pending culture results. The new superficial ulcerated area underlying the blister is dressed today with Aquacel Ag covered with a dry dressing of gauze and an ABD pad secured with Kerlix and an Juliano bandage. This dressing will be changed on a daily basis. His foot is to be washed with soap and water and dried with a clean towel prior to applying his new dressings. He will continue with use of his offloading boots. I will continue to follow along in the care of this patient while he remains in house. Problem: Acute Qualifiers: Encounter type: initial encounter Qualified Code(s): S90.822A - Blister (nonthermal), left foot, initial encounter
[2018-08-28] MEDS: INSULIN REGULAR, HUMAN 100 UNITS/ML VIAL SC SCH ×3 (12:05→21:10)
[2018-08-28] MEDS: AZITHROMYCIN 500 MG in DEXTROSE 5 % IN WATER 250 ML IV SCH ×2 (15:38)
[2018-08-28] MEDS: HYDROmorphone HCL 1 MG/ML DISP.SYRIN IV PRN ×2 (17:43→22:17)
[2018-08-28] MEDS: AMITRIPTYLINE HCL 50 MG TABLET PEG SCH (20:55)
[2018-08-28] MEDS: LORATADINE 10 MG TABLET GT SCH (20:55)
[2018-08-28] MEDS: MONTELUKAST SODIUM 10 MG TABLET PEG SCH (21:01)
[2018-08-28 23:01] LABS: Hematocrit 32.1 % (42.0-52.0); Hemoglobin 10.1 gm/dL (13.5-18.0)
[2018-08-28] MEDS: LEVALBUTEROL HCL 1.25 MG/3 ML AMPUL IH PRN (23:08)
[2018-08-28] MEDS: ZOLPIDEM TARTRATE 10 MG TABLET PEG SCH (23:49)
[2018-08-29] MEDS: HYDROmorphone HCL 1 MG/ML DISP.SYRIN IV PRN (05:12)
[2018-08-29] MEDS: LEVALBUTEROL HCL 1.25 MG/3 ML AMPUL IH PRN (05:54)
[2018-08-29 06:02] LABS: Hematocrit 31.6 % (42.0-52.0); Hemoglobin 9.8 gm/dL (13.5-18.0); Mean Cell Volume 100.3 fl (78-100); Mean Corpuscular Hemoglobin 31.1 pg (27-31); Mean Platelet Volume 11.9 fl (8-11.3); Neutrophil # 7.2 K/mm3 (1.3-6.0); Neutrophil % 70.8 % (42-75.0); Platelet Count 281 K/mm3 (150-450); Red Blood Count 3.15 M/mm3 (4.7-6.0); Red Cell Distribution Width 18.2 % (11.5-14.0); White Blood Count 10.1 K/mm3 (4.0-10.5)
[2018-08-29 06:10] LABS: Albumin * 1.7 gm/dl (3.4-5.0); Anion Gap 8.1 mmol/L (6.8-13.8); BUN/Creatinine Ratio 18.4 (9.0-21.6); Bilirubin, Total 0.5 mg/dL (0.0-1.1); Ca. Corrected For Albumin 8.7 mg/dL (8.4-10.2); Calcium * 7.2 mg/dL (7.9-10.9); Carbon Dioxide 34.9 mmol/L (24-32.6); Magnesium 1.5 mg/dL (1.2-2.8); Total Protein 6.8 gm/dL (6.2-8.2)
--- NOTE | 2018-08-29 06:58 | PN ---
Subjective - Date and Time Seen Date: 08/29/18 Time: 06:50 Subjective Narrative: Pt. is asleep this am and does not awaken to voice, but is in no distress. Nursing reports low sats last pm, improved with suctioning, neb tx and repositioning. Did request dilaudid a 3 times in the night (currently q4hrs prn). Pt. continues to refuse PEG tube feeds as he states he gets tremendous pain and bloating from them. Dr. Steven in yesterday pm to debride bulla on left dorsum of foot. Objective - Review of Systems Generalized/Overall Review: Reports: Weakness, Malaise. Denies: Chills, Fever EENTM: Reports: No Symptoms Reported Respiratory: Reports: Shortness of Breath, Wheezing. Denies: Cough Cardiac: Reports: Edema. Denies: Chest Pain, Palpitations Abdominal: Reports: Abdominal Pain. Denies: Nausea, Vomiting, Constipation, Bright blood from rectum Genitourinary Symptoms: Reports: No Symptoms Reported Musculoskeletal Complaints: Reports: No Symptoms Reported Neurological: Reports: Weakness, Pre-existing Deficit Skin: Reports: Other - multiple wounds Endocrine: Reports: No Symptoms Reported - Vitals Vitals: Last Vital Signs Temp 37.8 C 08/29/18 02:00 Pulse 115 H 08/29/18 06:03 Resp 18 08/29/18 06:03 BP 99/55 08/29/18 02:00 Pulse Ox 89 L 08/29/18 05:54 - Abnormal Lab Findings Abnormal Lab Findings: Abnormal Lab Results 08/28/18 08/28/18 08/28/18 Range/Units 07:55 07:55 08:55 WBC 11.5 H (4.0-10.5) K/mm3 RBC 2.43 L (4.7-6.0) M/mm3 Hgb 7.8 L* (13.5-18.0) gm/dL Hct 25.0 L (42.0-52.0) % MCV 102.9 H (78-100) fl MCH 32.1 H (27-31) pg MCHC 31.2 L (32-36) g/dl RDW 17.5 H (11.5-14.0) % MPV 12.8 H (8-11.3) fl Immature Gran % (Auto) 0.50 H (0.001-0.429) % Immature Gran # (Auto) 0.06 H (0.000-0.0310) K/mm3 Neutrophils % 81.2 H (42-75.0) % Lymphocytes % 8.1 L (20-51) % Monocytes % (0.0-9) % Neutrophils # 9.4 H (1.3-6.0) K/mm3 Lymphocytes # 0.93 L (1.5-3.5) k/mm3 Monocytes # (0.0-1.0) k/mm3 Potassium 3.2 L (3.4-4.6) mmol/L Chloride (97-106) mmol/L Carbon Dioxide (24-32.6) mmol/L Creatinine 0.36 L (0.4-1.4) mg/dL Est GFR (Non-Af Amer) 362 H D (60-130) mL/min BUN/Creatinine Ratio 22.2 H (9.0-21.6) Calcium 6.8 L (7.9-10.9) mg/dL Calcium Adj for Albumin 8.2 L (8.4-10.2) mg/dL Total Protein 6.0 L (6.2-8.2) gm/dL Albumin 1.8 L (3.4-5.0) gm/dl Vitamin B12 (193-986) pg/mL Crossmatch See Detail 08/28/18 08/28/18 08/29/18 Range/Units 08:55 22:55 05:55 WBC (4.0-10.5) K/mm3 RBC 3.15 L (4.7-6.0) M/mm3 Hgb 10.1 L 9.8 L (13.5-18.0) gm/dL Hct 32.1 L 31.6 L (42.0-52.0) % MCV 100.3 H (78-100) fl MCH 31.1 H (27-31) pg MCHC 31.0 L (32-36) g/dl RDW 18.2 H (11.5-14.0) % MPV 11.9 H (8-11.3) fl Immature Gran % (Auto) 0.50 H (0.001-0.429) % Immature Gran # (Auto) 0.05 H (0.000-0.0310) K/mm3 Neutrophils % (42-75.0) % Lymphocytes % 13.4 L (20-51) % Monocytes % 12.6 H (0.0-9) % Neutrophils # 7.2 H (1.3-6.0) K/mm3 Lymphocytes # 1.36 L (1.5-3.5) k/mm3 Monocytes # 1.3 H (0.0-1.0) k/mm3 Potassium (3.4-4.6) mmol/L Chloride (97-106) mmol/L Carbon Dioxide (24-32.6) mmol/L Creatinine (0.4-1.4) mg/dL Est GFR (Non-Af Amer) (60-130) mL/min BUN/Creatinine Ratio (9.0-21.6) Calcium (7.9-10.9) mg/dL Calcium Adj for Albumin (8.4-10.2) mg/dL Total Protein (6.2-8.2) gm/dL Albumin (3.4-5.0) gm/dl Vitamin B12 1175 H (193-986) pg/mL Crossmatch 08/29/18 Range/Units 05:55 WBC (4.0-10.5) K/mm3 RBC (4.7-6.0) M/mm3 Hgb (13.5-18.0) gm/dL Hct (42.0-52.0) % MCV (78-100) fl MCH (27-31) pg MCHC (32-36) g/dl RDW (11.5-14.0) % MPV (8-11.3) fl Immature Gran % (Auto) (0.001-0.429) % Immature Gran # (Auto) (0.000-0.0310) K/mm3 Neutrophils % (42-75.0) % Lymphocytes % (20-51) % Monocytes % (0.0-9) % Neutrophils # (1.3-6.0) K/mm3 Lymphocytes # (1.5-3.5) k/mm3 Monocytes # (0.0-1.0) k/mm3 Potassium 2.0 L* D (3.4-4.6) mmol/L Chloride 93 L (97-106) mmol/L Carbon Dioxide 34.9 H (24-32.6) mmol/L Creatinine (0.4-1.4) mg/dL Est GFR (Non-Af Amer) 254 H D (60-130) mL/min BUN/Creatinine Ratio (9.0-21.6) Calcium 7.2 L (7.9-10.9) mg/dL Calcium Adj for Albumin (8.4-10.2) mg/dL Total Protein (6.2-8.2) gm/dL Albumin 1.7 L (3.4-5.0) gm/dl Vitamin B12 (193-986) pg/mL Crossmatch - EKG/Xray Findings EKG: NSR - Exam Constitutional: Present: Somnolent, Morbidly obese Neck: Present: supple Respiratory: Present: rhonchi, wheezing, expiration (prolonged) Cardiovascular/Chest: Present: no murmur, tachycardia, edema Abdomen: Present: Normal bowel sounds, soft, nontender, no rebound tenderness, distended Extremity: Present: pedal edema Skin Exam: Present: warm/dry Cauti Physician Documentation - Urinary Catheter Management Suprapubic Urethral Indwelling: Yes Reason for Continuing Indwelling Catheter: Other - neurogenic bladder Cspine injury with quadraplegia. Date of Insertion: 08/27/18 Time of Insertion: 13:25 Date of Removal: 08/27/18 Time of Removal: 13:25 Assessment/Plan - Problems/Diagnosis (1) Pneumonia Problem: Acute Qualifiers: Pneumonia type: due to Mycoplasma pneumoniae Laterality: right Lung location: lower lobe of lung Qualified Code(s): J15.7 - Pneumonia due to Mycoplasma pneumoniae Narrative: improving, continue zithromax IV for now. (2) Sepsis Problem: Acute Qualifiers: Sepsis type: sepsis due to unspecified organism Qualified Code(s): A41.9 - Sepsis, unspecified organism Narrative: lactic acid resolved, HR and BP's, WBC and ESR improving. continue zosysn for now, even though cultures show intermediate sensitivity, he appears to be improving with current therapy. (3) Open wound Problem: Acute Narrative: continue dry gauze in wound bases containing yellow slough to pull out material that would impede healing. (4) Diabetes mellitus Problem: Chronic Qualifiers: Diabetes mellitus type: type 2 Diabetes mellitus intermediate insulin use: with manager long term care use Diabetes mellitus complication status: with unspecified complications Qualified Code(s): E11.8 - Type 2 diabetes mellitus with unspecified complications; Z79.4 - watermelon harvesting supervisor (current) use of insulin Narrative: sugars variable. continue good diet and SSI. Pt. is difficult to maintain compliance with diet. (5) Severe protein-calorie malnutrition Problem: Chronic Narrative: will continue to try PEG feeds as this may be best way to improve his albumin and nutrition, which in turn will improve his edema and wound healing, but pt. continues to refuse them. (6) Spinal cord injury at C1-C4 level Problem: Chronic Qualifiers: Encounter type: subsequent encounter Qualified Code(s): S14.101D - Unspecified injury at C1 level of cervical spinal cord, subsequent encounter Narrative: complicates wound care - continue q2hr turns and heal protectors. Not sure if alternating air mattresses available or payable, which might help with wound prevention. (7) Ventilator dependent Problem: Chronic Narrative: appears to get mucous plugging at times. continue nebs but increase to TID with q4hr prn. (8) Acute hypokalemia Problem: Acute Narrative: worse this am, most likely from all the fluid boluses yesterday for his sepsis, hypotension and tachycardia. Will resume PO KCL and do KCL riders as well, recheck labs in am. (9) Hypomagnesemia Problem: Acute Narrative: improved after IV magnesium. continue to monitor. consider magnesium per peg, which may also keep bowels moving well. (10) Anemia Problem: Acute Qualifiers: Anemia type: iron deficiency Iron deficiency anemia type: inadequate dietary iron intake Qualified Code(s): D50.8 - Other iron deficiency anemias Narrative: feel his anemia is multi-factorial. part is nutritional, part is probably GI losses. will add iron supplements to regimen. was transfused 2 units yeste rday, which seemed to help tremendously with his BP, HR and oxygen delivery. (11) Skin bulla Problem: Acute Narrative: treatment per Dr. Steven, appreciate her care and help. (12) Discharge planning issues Problem: Acute Narrative: Pt. is improving, showing that current care is working and has successfully stabilized his septic picture, but still anticipate patient being here a couple more days while we correct his electrolytes and be sure he continues to improve from a sepsis standpoint. Will look at doing IV zosyn in the [place], otherwise may need to be skilled here in a couple days to finish his IV abx regimen.
[2018-08-29] MEDS: INSULIN REGULAR, HUMAN 100 UNITS/ML VIAL SC SCH ×3 (07:02→19:07)
[2018-08-29] MEDS: NORMAL SALINE 1,000 ML IV PRN ×2 (07:04→15:27)
[2018-08-29] MEDS: POTASSIUM CHLORIDE IN WATER 100 ML IV SCH ×4 (07:54→11:05)
[2018-08-29] MEDS: PIPERACILLIN SODIUM/TAZOBACTAM 3.375 GM in DEXTROSE 5 % IN WATER 100 ML IV SCH ×4 (08:05→15:34)
[2018-08-29] MEDS ORDERED: HYDROmorphone HCL 1 MG/ML DISP.SYRIN IV PRN ×2 (08:56→10:26)
[2018-08-29] MEDS: LEVALBUTEROL HCL 1.25 MG/3 ML AMPUL IH SCH ×3 (09:26→18:57)
[2018-08-29] MEDS: POTASSIUM CHLORIDE 40 MEQ/15 ML BTL PEG SCH ×3 (09:31→19:14)
[2018-08-29] MEDS: levETIRAcetam 100 MG/ML BTL PEG SCH (09:34)
[2018-08-29] MEDS: DOCUSATE SODIUM 150 MG/15 ML BTL PEG SCH (09:35)
[2018-08-29] MEDS: FERROUS GLUC PEG SCH (09:36)
[2018-08-29] MEDS: MULTIVIT MINERALS PEG SCH (09:36)
[2018-08-29] MEDS: METOLAZONE 2.5 MG TABLET PEG SCH (09:37)
[2018-08-29] MEDS: SIMETHICONE 80 MG TAB.CHEW PEG SCH ×3 (09:37→19:11)
[2018-08-29] MEDS: BACLOFEN 10 MG TABLET GT SCH ×4 (09:37→21:36)
[2018-08-29] MEDS: METOPROLOL TARTRATE 50 MG TABLET PEG SCH (09:37)
[2018-08-29] MEDS: MAGNESIUM OXIDE 400 MG TABLET PEG SCH ×3 (09:39→19:10)
[2018-08-29] MEDS: APIXABAN 5 MG TABLET PO SCH (09:39)
[2018-08-29] MEDS: SACCHAROMYCES BOULARDII 250 MG CAPSULE PEG SCH (09:39)
[2018-08-29] MEDS: TOLTERODINE TARTRATE 4 MG CAPSULE PO SCH (09:39)
[2018-08-29] MEDS: POLYETHYLENE GLYCOL 3350 17 GM PACKET PO SCH (09:40)
[2018-08-29] MEDS: BUMETANIDE 1 MG TABLET GT SCH (09:40)
[2018-08-29] MEDS: MIDODRINE HCL 2.5 MG TABLET PEG SCH ×3 (09:40→19:11)
[2018-08-29] MEDS: CHLORHEXIDINE GLUCONATE 480 ML BTL MM SCH ×2 (09:45→23:50)
[2018-08-29] MEDS: OMEPRAZOLE 2 MG/ML BTL PEG SCH (09:45)
[2018-08-29] MEDS: PREGABALIN 75 MG CAPSULE PEG SCH (09:45)
[2018-08-29] MEDS: HYDROcodone/ACETAMINOPHEN 1 EACH TABLET PEG PRN (12:29)
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
[2018-08-29] MEDS: AZITHROMYCIN 500 MG in DEXTROSE 5 % IN WATER 250 ML IV SCH ×2 (15:30)
[2018-08-29] MEDS: KETOROLAC TROMETHAMINE 30 MG/ML VIAL IV PRN (15:39)
[2018-08-29] MEDS ORDERED: ACETYLCYSTEINE 200 MG/ML VIAL IH SCH (17:15)
[2018-08-29] MEDS ORDERED: SODIUM CHLORIDE FOR INHALATION 3 ML VIAL.NEB IH PRN (17:17)
[2018-08-29] MEDS ORDERED: LEVALBUTEROL HCL 0.63 MG/3 ML AMPUL IH ONE (17:35)
[2018-08-29] MEDS ORDERED: NORMAL SALINE 1,000 ML IV ONE (18:13)
[2018-08-29 18:47] LABS: Mean Cell Volume 102.5 fl (78-100); Mean Corpuscular Hemoglobin 31.8 pg (27-31); Mean Platelet Volume 11.6 fl (8-11.3); Neutrophil # 7.2 K/mm3 (1.3-6.0); Neutrophil % 78.9 % (42-75.0); Platelet Count 223 K/mm3 (150-450); Red Blood Count 2.83 M/mm3 (4.7-6.0); Red Cell Distribution Width 17.8 % (11.5-14.0); White Blood Count 9.1 K/mm3 (4.0-10.5)
--- NOTE | 2018-08-29 19:10 | PN ---
Subjective - Date and Time Seen Date: 08/29/18 Time: 18:54 Subjective Narrative: Called due to patient sating in the low 80's and unable to get his sats up on his current NH vent. His ABG showed a respiratory acidosis, c/w his hypercapnic, hypoxic acute respiratory failure. Pt. was transfered to the SCU to be placed on vent and monitored more closely. Just as he arrived in the SCU ad was put on the vent his SBP's dropped into the 80-90's. Peep was adjusted as well as his Vt ad RR. repeat ABG pending and IVF bolus running at this time. Pt. himself has no complaints and is alert and not critical appearing. Nursing reports he did get 2 PEG tube feeds today, but no PO foods. Dilaudid was stopped due to hypoxia. Objective - Review of Systems Generalized/Overall Review: Reports: Weakness. Denies: Chills, Fever, Malaise, Fatigue EENTM: Reports: No Symptoms Reported Respiratory: Denies: Cough, Shortness of Breath Cardiac: Reports: Edema Abdominal: Reports: No Symptoms Reported Genitourinary Symptoms: Reports: No Symptoms Reported Musculoskeletal Complaints: Reports: No Symptoms Reported Neurological: Reports: No Symptoms Reported Skin: Reports: No Symptoms Reported Endocrine: Reports: No Symptoms Reported - Vitals Vitals: Last Vital Signs Temp 37.2 C 08/29/18 10:27 Pulse 119 H 08/29/18 13:20 Resp 20 08/29/18 13:20 BP 112/55 08/29/18 10:27 Pulse Ox 93 08/29/18 13:10 - Abnormal Lab Findings Abnormal Lab Findings: Abnormal Lab Results 08/28/18 08/28/18 08/29/18 Range/Units 08:55 22:55 05:55 RBC 3.15 L (4.7-6.0) M/mm3 Hgb 10.1 L 9.8 L (13.5-18.0) gm/dL Hct 32.1 L 31.6 L (42.0-52.0) % MCV 100.3 H (78-100) fl MCH 31.1 H (27-31) pg MCHC 31.0 L (32-36) g/dl RDW 18.2 H (11.5-14.0) % MPV 11.9 H (8-11.3) fl Immature Gran % (Auto) 0.50 H (0.001-0.429) % Immature Gran # (Auto) 0.05 H (0.000-0.0310) K/mm3 Neutrophils % (42-75.0) % Lymphocytes % 13.4 L (20-51) % Monocytes % 12.6 H (0.0-9) % Neutrophils # 7.2 H (1.3-6.0) K/mm3 Lymphocytes # 1.36 L (1.5-3.5) k/mm3 Monocytes # 1.3 H (0.0-1.0) k/mm3 ESR (0-10) mm/hr pCO2 (35.0-48.0) mmHg pO2 (83.0-108.0) mmHg HCO3 (21.0-28.0) mmol/L Total CO2 (19.0-24.0) mmol/L ABG pH (7.35-7.45) ABG O2 Sat (Measured) (94.0-98.0) % Potassium (3.4-4.6) mmol/L Chloride (97-106) mmol/L Carbon Dioxide (24-32.6) mmol/L Est GFR (Non-Af Amer) (60-130) mL/min Calcium (7.9-10.9) mg/dL Albumin (3.4-5.0) gm/dl Crossmatch See Detail 08/29/18 08/29/18 08/29/18 Range/Units 05:55 05:55 17:24 RBC (4.7-6.0) M/mm3 Hgb (13.5-18.0) gm/dL Hct (42.0-52.0) % MCV (78-100) fl MCH (27-31) pg MCHC (32-36) g/dl RDW (11.5-14.0) % MPV (8-11.3) fl Immature Gran % (Auto) (0.001-0.429) % Immature Gran # (Auto) (0.000-0.0310) K/mm3 Neutrophils % (42-75.0) % Lymphocytes % (20-51) % Monocytes % (0.0-9) % Neutrophils # (1.3-6.0) K/mm3 Lymphocytes # (1.5-3.5) k/mm3 Monocytes # (0.0-1.0) k/mm3 ESR 109 H (0-10) mm/hr pCO2 74.0 H* (35.0-48.0) mmHg pO2 53.7 L (83.0-108.0) mmHg HCO3 31.4 H (21.0-28.0) mmol/L Total CO2 33.7 H (19.0-24.0) mmol/L ABG pH 7.25 L (7.35-7.45) ABG O2 Sat (Measured) 81.0 L (94.0-98.0) % Potassium 2.0 L* D (3.4-4.6) mmol/L Chloride 93 L (97-106) mmol/L Carbon Dioxide 34.9 H (24-32.6) mmol/L Est GFR (Non-Af Amer) 254 H D (60-130) mL/min Calcium 7.2 L (7.9-10.9) mg/dL Albumin 1.7 L (3.4-5.0) gm/dl Crossmatch 08/29/18 Range/Units 18:45 RBC 2.83 L (4.7-6.0) M/mm3 Hgb 9.0 L (13.5-18.0) gm/dL Hct 29.0 L (42.0-52.0) % MCV 102.5 H (78-100) fl MCH 31.8 H (27-31) pg MCHC 31.0 L (32-36) g/dl RDW 17.8 H (11.5-14.0) % MPV 11.6 H (8-11.3) fl Immature Gran % (Auto) 0.50 H (0.001-0.429) % Immature Gran # (Auto) 0.05 H (0.000-0.0310) K/mm3 Neutrophils % 78.9 H (42-75.0) % Lymphocytes % 8.2 L (20-51) % Monocytes % 11.1 H (0.0-9) % Neutrophils # 7.2 H (1.3-6.0) K/mm3 Lymphocytes # 0.75 L (1.5-3.5) k/mm3 Monocytes # (0.0-1.0) k/mm3 ESR (0-10) mm/hr pCO2 (35.0-48.0) mmHg pO2 (83.0-108.0) mmHg HCO3 (21.0-28.0) mmol/L Total CO2 (19.0-24.0) mmol/L ABG pH (7.35-7.45) ABG O2 Sat (Measured) (94.0-98.0) % Potassium (3.4-4.6) mmol/L Chloride (97-106) mmol/L Carbon Dioxide (24-32.6) mmol/L Est GFR (Non-Af Amer) (60-130) mL/min Calcium (7.9-10.9) mg/dL Albumin (3.4-5.0) gm/dl Crossmatch - EKG/Xray Findings EKG: NSR - by tachycardia - Exam Constitutional: Present: Alert, Oriented x3, Cooperative, No distress ENT Exam: Present: hearing grossly normal Neck: Present: supple Respiratory: Present: no respiratory distress, no accessory muscle use, rales - significant rales, worse than this am scattered isabel. Cardiovascular/Chest: Present: no murmur, tachycardia Abdomen: Present: Normal bowel sounds, soft, tender - mildly TTP, distended. Absent: guarding, firm Extremity: Present: lower extremity edema Skin Exam: Present: warm/dry Neurologic: Present: dye range operator II-XII nml as tested, oriented x 3 Appearance: Present: appropriate appearance, appropriate insight, no memory impairment Eye contact: Present: cooperative, good eye contact, normal speech Thoughts: Present: normal thought pattern, no apparent hallucination Cauti Physician Documentation - Urinary Catheter Management Suprapubic Urethral Indwelling: Yes Reason for Continuing Indwelling Catheter: Prolonged immobilization Date of Insertion: 08/27/18 Time of Insertion: 13:25 Date of Removal: 08/27/18 Time of Removal: 13:25 Assessment/Plan - Problems/Diagnosis (1) Pneumonia Problem: Acute Qualifiers: Pneumonia type: due to Mycoplasma pneumoniae Laterality: right Lung location: lower lobe of lung Qualified Code(s): J15.7 - Pneumonia due to Mycoplasma pneumoniae Narrative: believe he is being appropriately treated. no changes at this time unless his CBC shows an increase in his WBC with a left shift. (2) Sepsis Problem: Acute Qualifiers: Sepsis type: sepsis due to unspecified organism Qualified Code(s): A41.9 - Sepsis, unspecified organism Narrative: stable. (3) Open wound Problem: Acute Narrative: stale. appreciate wound clinic eval. (4) Diabetes mellitus Problem: Chronic Qualifiers: Diabetes mellitus type: type 2 Diabetes mellitus usp insulin use: with intermodal customer service use Diabetes mellitus complication status: with unspecified complications Qualified Code(s): E11.8 - Type 2 diabetes mellitus with unspecified complications; Z79.4 - shelter (current) use of insulin Narrative: stale continue feeds and SSI for sugars. (5) Severe protein-calorie malnutrition Problem: Chronic Narrative: continue PEG tube feeds as this will help his wound healing, his pressures and his fighting the infection(s). (6) Spinal cord injury at C1-C4 level Problem: Chronic Qualifiers: Encounter type: subsequent encounter Qualified Code(s): S14.101D - Unspecified injury at C1 level of cervical spinal cord, subsequent encounter (7) Ventilator dependent Problem: Chronic (8) Acute hypokalemia Problem: Acute (9) Hypomagnesemia Problem: Acute (10) Anemia Problem: Acute Qualifiers: Anemia type: iron deficiency Iron deficiency anemia type: inadequate dietary iron intake Qualified Code(s): D50.8 - Other iron deficiency anemias (11) Skin bulla Problem: Acute (12) Discharge planning issues Problem: Acute (13) Pulmonary edema Problem: Acute Qualifiers: Chronicity: acute Qualified Code(s): J81.0 - Acute pulmonary edema Narrative: will do lasix 80mg IV to try to draw off some fluid to see if this improves his O2 sats and his breathing. risk is his BP's are low so will have to monitor. Will order art line for better monitoring of BP's and to ABG's. (14) Acute respiratory failure with hypoxia and hypercapnia Problem: Acute Narrative: will try to correct with vent - currently on Vt 0f 400ml (couldn't tolerate 500ml), RR 18 and FIO2 of 100%. (15) Hypotension Problem: Acute Qualifiers: Hypotension type: hypotension due to hypovolemia Qualified Code(s): I95.89 - Other hypotension; E86.1 - Hypovolemia Narrative: possibly from hypovolemia, could be his anemia - will check CBC. Could be from the vent and we may need to modify his settings accordingly. Consider doing doing pressor - dopamine drip. Will check troponin I to be sure not cardiogenic.
[2018-08-29] MEDS ORDERED: HEPARIN SODIUM,PORCINE 5,000 UNITS/ML VIAL ONE (19:16)
[2018-08-29] MEDS ORDERED: HEPARIN 1000 UNIT/ML ONE (19:20)
[2018-08-29] MEDS ORDERED: FUROSEMIDE 10 MG/ML VIAL IV ONE (19:30)
[2018-08-29 20:04] LABS: Albumin * 1.6 gm/dl (3.4-5.0); Anion Gap 7.5 mmol/L (6.8-13.8); BUN/Creatinine Ratio 19.6 (9.0-21.6); Bilirubin, Total 0.4 mg/dL (0.0-1.1); Ca. Corrected For Albumin 8.1 mg/dL (8.4-10.2); Calcium * 6.5 mg/dL (7.9-10.9); Carbon Dioxide 33.1 mmol/L (24-32.6); Potassium 3.6 mmol/L (3.4-4.6); Total Protein 5.7 gm/dL (6.2-8.2)
[2018-08-29] MEDS ORDERED: NOREPINEPHRINE BITARTRATE 4 MG in DEXTROSE 5 % IN WATER 496 ML IV PRN ×2 (21:57)
[2018-08-30] MEDS: BUMETANIDE 1 MG TABLET GT SCH
[2018-08-30] MEDS: MULTIVIT MINERALS PEG SCH ×3 (00:02→21:17)
[2018-08-30] MEDS: FERROUS GLUC PEG SCH ×3 (00:02→21:17)
[2018-08-30] MEDS: LORATADINE 10 MG TABLET GT SCH ×2 (00:03→21:19)
[2018-08-30] MEDS: DOCUSATE SODIUM 150 MG/15 ML BTL PEG SCH ×3 (00:03→21:19)
[2018-08-30] MEDS: APIXABAN 5 MG TABLET PO SCH ×3 (00:04→21:21)
[2018-08-30] MEDS: SACCHAROMYCES BOULARDII 250 MG CAPSULE PEG SCH ×3 (00:05→21:21)
[2018-08-30] MEDS: INSULIN REGULAR, HUMAN 100 UNITS/ML VIAL SC SCH ×5 (00:06→21:21)
[2018-08-30] MEDS: levETIRAcetam 100 MG/ML BTL PEG SCH ×3 (00:08→21:28)
[2018-08-30] MEDS: PREGABALIN 75 MG CAPSULE PEG SCH ×3 (00:10→21:30)
[2018-08-30] MEDS: METOPROLOL TARTRATE 50 MG TABLET PEG SCH ×2 (00:10→08:27)
[2018-08-30] MEDS: SIMETHICONE 80 MG TAB.CHEW PEG SCH ×5 (00:12→21:31)
[2018-08-30] MEDS: MIDODRINE HCL 2.5 MG TABLET PEG SCH ×5 (00:12→21:33)
[2018-08-30] MEDS: MONTELUKAST SODIUM 10 MG TABLET PEG SCH ×2 (00:14→21:34)
[2018-08-30] MEDS: PIPERACILLIN SODIUM/TAZOBACTAM 3.375 GM in DEXTROSE 5 % IN WATER 100 ML IV SCH ×8 (00:17→23:11)
[2018-08-30] MEDS: HYDROcodone/ACETAMINOPHEN 1 EACH TABLET PEG PRN ×3 (00:18→21:41)
[2018-08-30] MEDS: AMITRIPTYLINE HCL 50 MG TABLET PEG SCH (01:46)
[2018-08-30] MEDS: LEVALBUTEROL HCL 1.25 MG/3 ML AMPUL IH PRN (03:52)
[2018-08-30] MEDS ORDERED: FUROSEMIDE 10 MG/ML VIAL IV ONE (06:00)
[2018-08-30] MEDS: LEVALBUTEROL HCL 1.25 MG/3 ML AMPUL IH SCH ×2 (06:21→13:30)
[2018-08-30 06:37] LABS: Hematocrit 30.1 % (42.0-52.0); Hemoglobin 9.3 gm/dL (13.5-18.0); Mean Corpuscular Hemoglobin 31.5 pg (27-31); Mean Corpuscular Hgb Conc 30.9 g/dl (32-36); Mean Platelet Volume 12.4 fl (8-11.3); Neutrophil # 5.8 K/mm3 (1.3-6.0); Neutrophil % 74.9 % (42-75.0); Platelet Count 247 K/mm3 (150-450); Red Blood Count 2.95 M/mm3 (4.7-6.0); Red Cell Distribution Width 17.4 % (11.5-14.0); White Blood Count 7.8 K/mm3 (4.0-10.5)
[2018-08-30 07:02] LABS: Albumin * 1.6 gm/dl (3.4-5.0); Anion Gap 7.4 mmol/L (6.8-13.8); BUN/Creatinine Ratio 23.3 (9.0-21.6); Bilirubin, Total 0.5 mg/dL (0.0-1.1); Ca. Corrected For Albumin 8.8 mg/dL (8.4-10.2); Calcium * 7.2 mg/dL (7.9-10.9); Carbon Dioxide 35.6 mmol/L (24-32.6); Total Protein 6.7 gm/dL (6.2-8.2)
--- NOTE | 2018-08-30 07:08 | PN ---
Subjective - Date and Time Seen Date: 08/30/18 Time: 06:53 Subjective Narrative: Pt. is acting better this am. SBP's have been in the 100's overnight without the need for pressors. ABG is still concerning for respiratory acidosis/hypercapnia, but his hypoxia is better. He has 2600 output after the 80mg of lasix. Objective - Review of Systems Generalized/Overall Review: Reports: Weakness. Denies: Chills, Fever EENTM: Reports: No Symptoms Reported Respiratory: Reports: Shortness of Breath, Wheezing Cardiac: Reports: Edema. Denies: Chest Pain Abdominal: Reports: Abdominal Pain. Denies: Nausea, Vomiting Genitourinary Symptoms: Reports: No Symptoms Reported Musculoskeletal Complaints: Reports: No Symptoms Reported Neurological: Reports: Pre-existing Deficit Skin: Reports: Other - wounds Endocrine: Reports: No Symptoms Reported - Vitals Vitals: Last Vital Signs Temp 36.4 C 08/30/18 03:07 Pulse 68 08/30/18 06:44 Resp 22 H 08/30/18 06:44 BP 126/79 08/30/18 06:44 Pulse Ox 100 08/30/18 06:44 - Abnormal Lab Findings Abnormal Lab Findings: Abnormal Lab Results 08/29/18 08/29/18 08/29/18 Range/Units 05:55 17:24 18:45 RBC 2.83 L (4.7-6.0) M/mm3 Hgb 9.0 L (13.5-18.0) gm/dL Hct 29.0 L (42.0-52.0) % MCV 102.5 H (78-100) fl MCH 31.8 H (27-31) pg MCHC 31.0 L (32-36) g/dl RDW 17.8 H (11.5-14.0) % MPV 11.6 H (8-11.3) fl Immature Gran % (Auto) 0.50 H (0.001-0.429) % Immature Gran # (Auto) 0.05 H (0.000-0.0310) K/mm3 Neutrophils % 78.9 H (42-75.0) % Lymphocytes % 8.2 L (20-51) % Monocytes % 11.1 H (0.0-9) % Eosinophils % (0.0-3.0) % Neutrophils # 7.2 H (1.3-6.0) K/mm3 Lymphocytes # 0.75 L (1.5-3.5) k/mm3 ESR 109 H (0-10) mm/hr pCO2 74.0 H* (35.0-48.0) mmHg pO2 53.7 L (83.0-108.0) mmHg HCO3 31.4 H (21.0-28.0) mmol/L Total CO2 33.7 H (19.0-24.0) mmol/L Base Excess (-2.0-3.0) mmol/L ABG pH 7.25 L (7.35-7.45) ABG O2 Sat (Measured) 81.0 L (94.0-98.0) % Carbon Dioxide (24-32.6) mmol/L Est GFR (Non-Af Amer) (60-130) mL/min Random Glucose (70-110) mg/dL Calcium (7.9-10.9) mg/dL Calcium Adj for Albumin (8.4-10.2) mg/dL Total Protein (6.2-8.2) gm/dL Albumin (3.4-5.0) gm/dl 08/29/18 08/30/18 08/30/18 Range/Units 18:45 05:00 06:15 RBC 2.95 L (4.7-6.0) M/mm3 Hgb 9.3 L (13.5-18.0) gm/dL Hct 30.1 L (42.0-52.0) % MCV 102.0 H (78-100) fl MCH 31.5 H (27-31) pg MCHC 30.9 L (32-36) g/dl RDW 17.4 H (11.5-14.0) % MPV 12.4 H (8-11.3) fl Immature Gran % (Auto) (0.001-0.429) % Immature Gran # (Auto) (0.000-0.0310) K/mm3 Neutrophils % (42-75.0) % Lymphocytes % 8.2 L (20-51) % Monocytes % 11.5 H (0.0-9) % Eosinophils % 4.9 H (0.0-3.0) % Neutrophils # (1.3-6.0) K/mm3 Lymphocytes # 0.64 L (1.5-3.5) k/mm3 ESR (0-10) mm/hr pCO2 77.6 H* (35.0-48.0) mmHg pO2 72.5 L (83.0-108.0) mmHg HCO3 36.2 H (21.0-28.0) mmol/L Total CO2 38.6 H (19.0-24.0) mmol/L Base Excess 7.6 H (-2.0-3.0) mmol/L ABG pH 7.29 L (7.35-7.45) ABG O2 Sat (Measured) 92.0 L (94.0-98.0) % Carbon Dioxide 33.1 H (24-32.6) mmol/L Est GFR (Non-Af Amer) 242 H (60-130) mL/min Random Glucose 249 H D (70-110) mg/dL Calcium 6.5 L (7.9-10.9) mg/dL Calcium Adj for Albumin 8.1 L (8.4-10.2) mg/dL Total Protein 5.7 L (6.2-8.2) gm/dL Albumin 1.6 L (3.4-5.0) gm/dl - EKG/Xray Findings EKG: NSR - with tachycardia in low 100's - Exam Constitutional: Present: Alert, Oriented x3, Cooperative, Mild distress, Morbidly obese ENT Exam: Present: hearing grossly normal Neck: Present: supple Respiratory: Present: rales, expiration (prolonged) Cardiovascular/Chest: Present: no murmur, tachycardia Abdomen: Present: Normal bowel sounds, soft, nontender, distended Extremity: Present: lower extremity edema - 2+ and pitting Skin Exam: Present: normal color Neurologic: Present: oriented x 3, depressed affect Appearance: Present: appropriate appearance, appropriate insight, no memory impairment Eye contact: Present: cooperative, good eye contact, normal speech Thoughts: Present: normal thought pattern, no apparent hallucination Cauti Physician Documentation - Urinary Catheter Management Suprapubic Urethral Indwelling: Yes Reason for Continuing Indwelling Catheter: Prolonged immobilization Date of Insertion: 08/27/18 Time of Insertion: 13:25 Date of Removal: 08/27/18 Time of Removal: 13:25 Assessment/Plan - Problems/Diagnosis (1) Pneumonia Problem: Acute Qualifiers: Pneumonia type: due to Mycoplasma pneumoniae Laterality: right Lung location: lower lobe of lung Qualified Code(s): J15.7 - Pneumonia due to Mycoplasma pneumoniae Narrative: given labs this is improving. (2) Sepsis Problem: Acute Qualifiers: Sepsis type: sepsis due to unspecified organism Qualified Code(s): A41.9 - Sepsis, unspecified organism Narrative: believe this to be multi-factorial: pneumonia, UTI and wounds. is lactic acid has resolved so I believe he's on appropriate Abx. His hypotension and hypoxia last pm most likely was from obstructive shock from pulmonary edema given the volume of fluid rescusitation we did. He has improved some with lasix and diuresis. (3) Open wound Problem: Acute Narrative: continue current care and the recommendations of the wound clinic. nutrition and immobility are his biggest adversaries, so treating this will be essential to his improvement. His current edematous state will slow improvement as well, so we will continue to diurese him. (4) Diabetes mellitus Problem: Chronic Qualifiers: Diabetes mellitus type: type 2 Diabetes mellitus long winder tender insulin use: with long winder tender use Diabetes mellitus complication status: with unspecified complications Qualified Code(s): E11.8 - Type 2 diabetes mellitus with unspecified complications; Z79.4 - director long term care (current) use of insulin Narrative: sugars running a little high. continue SSI, but may need to increase to higher level. (5) Severe protein-calorie malnutrition Problem: Chronic Narrative: continue PEG tube feeds. (6) Spinal cord injury at C1-C4 level Problem: Chronic Qualifiers: Encounter type: subsequent encounter Qualified Code(s): S14.101D - Un specified injury at C1 level of cervical spinal cord, subsequent encounter (7) Ventilator dependent Problem: Chronic (8) Acute hypokalemia Problem: Acute Narrative: improved last pm after IV and PO dosing. AM labs not back yet. (9) Hypomagnesemia Problem: Acute Narrative: stable, continue PO replacement. (10) Anemia Problem: Acute Qualifiers: Anemia type: iron deficiency Iron deficiency anemia type: inadequate dietary iron intake Qualified Code(s): D50.8 - Other iron deficiency anemias Narrative: stable after 2 units PRBCs. follow. keeping his Hb in 9.0 range should help his healing and respiratory state and volume status. (11) Skin bulla Problem: Acute (12) Pulmonary edema Problem: Acute Qualifiers: Chronicity: acute Qualified Code(s): J81.0 - Acute pulmonary edema Narrative: creating obstructive shock last PM, along with respiratory acidosis. diuresing him more should continue to help. SBP are more stable now so we should be able to increase PEEP without as much negative effect on his BP. (13) Acute respiratory failure with hypoxia and hypercapnia Problem: Acute Narrative: improved hypoxia, but still with respiratory acidosis and hypercapnia. will increase PEEP and RR, consider increasing Vt to 450 if no correction seen after changes. (14) Hypotension Problem: Acute Qualifiers: Hypotension type: hypotension due to hypovolemia Qualified Code(s): I95.89 - Other hypotension; E86.1 - Hypovolemia Narrative: improved. continue to follow and hold his meds that can cause drop in BP. (15) Discharge planning issues Problem: Acute Narrative: anticipate at least 2-3 more days here before we can plan on discharging. Should we not be able to correct his respiratory acidosis we may need to look at transferring him out or at least get consult from other institution to try to continue to manage and improve things here. he is improved from last PM, but still has many issues of concern going on. 1.5 hrs of critical care attendance at bedside was given last pm.
[2018-08-30 07:24] LABS: CRP 16.4 mg/dL (0.0-0.9)
--- NOTE | 2018-08-30 07:38 | ANES ---
Anesthesia Procedure Note Procedure Note: ANESTHESIA PROCEDURE NOTE Date of procedure: 08/29/2018. Time of procedure: 1999. Performed by: Raúl Doran CRNA Temperature Inspector: None . Preprocedure diagnosis: Respiratory distress. Patient on ventilator. Post procedure diagnosis: Same. Procedure: Arterial line insertion Indications: Blood gas analysis. Findings: Ultrasound-guided right radial arterial line insertion attempted without success. Significant peripheral edema, patient unable to pronate palm, thready pulse factor into making this a difficult procedure. EBL: Minimal. Fluids: N/A. Specimen: N/A. Post procedure condition: The patient tolerated the procedure well. No complications were noted. Thank you for this consultation Raúl Doran CRNA
[2018-08-30] MEDS: POTASSIUM CHLORIDE IN WATER 100 ML IV SCH ×8 (07:57→17:10)
[2018-08-30] MEDS: METOLAZONE 2.5 MG TABLET PEG SCH (08:27)
[2018-08-30] MEDS: BACLOFEN 10 MG TABLET GT SCH (08:27)
[2018-08-30] MEDS: MAGNESIUM OXIDE 400 MG TABLET PEG SCH ×3 (08:27→17:12)
[2018-08-30] MEDS: TOLTERODINE TARTRATE 4 MG CAPSULE PO SCH (08:28)
[2018-08-30] MEDS: POLYETHYLENE GLYCOL 3350 17 GM PACKET PO SCH (08:28)
[2018-08-30] MEDS: POTASSIUM CHLORIDE 40 MEQ/15 ML BTL PEG SCH ×3 (08:29→17:13)
[2018-08-30] MEDS: OMEPRAZOLE 2 MG/ML BTL PEG SCH (08:33)
[2018-08-30] MEDS: CHLORHEXIDINE GLUCONATE 480 ML BTL MM SCH ×3 (08:34→23:10)
[2018-08-30] MEDS ORDERED: CHLORHEXIDINE GLUCONATE 15 ML UDC MM SCH (09:00)
[2018-08-30] MEDS: KETOROLAC TROMETHAMINE 30 MG/ML VIAL IV PRN ×2 (09:56→16:03)
[2018-08-30] MEDS ORDERED: NORMAL SALINE 500 ML IV PRN (12:22)
[2018-08-30 12:29] LABS: Anion Gap 7.7 mmol/L (6.8-13.8); BUN/Creatinine Ratio 21.7 (9.0-21.6); Calcium * 7.4 mg/dL (7.9-10.9); Carbon Dioxide 35.4 mmol/L (24-32.6); Potassium 3.1 mmol/L (3.4-4.6)
[2018-08-30] MEDS: AZITHROMYCIN 500 MG in DEXTROSE 5 % IN WATER 250 ML IV SCH ×2 (14:46)
[2018-08-30] MEDS ORDERED: ALPRAZolam 0.25 MG TABLET PO ONE (18:00)
[2018-08-30] MEDS ORDERED: HEPARIN SOD.,PORCINE 100 UNITS/ML IV ONE (20:56)
[2018-08-30] MEDS ORDERED: MIRTAZAPINE 15 MG TABLET PEG SCH (21:00)
[2018-08-30] MEDS ORDERED: HEPARIN SOD.,PORCINE 100 UNITS/ML ONE (21:07)
[2018-08-30] MEDS: ZOLPIDEM TARTRATE 10 MG TABLET PEG SCH (21:16)
[2018-08-30] MEDS: METOPROLOL TARTRATE 25 MG TABLET PEG SCH (21:28)
[2018-08-30] MEDS: CALCIUM CARBONATE 500 MG TAB.CHEW PO SCH (21:35)
[2018-08-30] MEDS ORDERED: HEPARIN SOD.,PORCINE 100 UNITS/ML IV PRN (21:46)
[2018-08-31 06:16] LABS: Hematocrit 29.2 % (42.0-52.0); Hemoglobin 8.9 gm/dL (13.5-18.0); Mean Cell Volume 102.8 fl (78-100); Mean Corpuscular Hemoglobin 31.3 pg (27-31); Mean Corpuscular Hgb Conc 30.5 g/dl (32-36); Mean Platelet Volume 12.1 fl (8-11.3); Neutrophil # 5.7 K/mm3 (1.3-6.0); Neutrophil % 72.7 % (42-75.0); Platelet Count 213 K/mm3 (150-450); Red Blood Count 2.84 M/mm3 (4.7-6.0); Red Cell Distribution Width 17.2 % (11.5-14.0); White Blood Count 7.9 K/mm3 (4.0-10.5)
[2018-08-31] MEDS: LEVALBUTEROL HCL 1.25 MG/3 ML AMPUL IH SCH ×3 (06:26→12:19)
[2018-08-31 06:28] LABS: Albumin * 1.6 gm/dl (3.4-5.0); BUN/Creatinine Ratio 23.5 (9.0-21.6); Bilirubin, Total 0.5 mg/dL (0.0-1.1); Ca. Corrected For Albumin 9.4 mg/dL (8.4-10.2); Calcium * 7.8 mg/dL (7.9-10.9); Carbon Dioxide 36.1 mmol/L (24-32.6); Potassium 4.1 mmol/L (3.4-4.6); Total Protein 6.6 gm/dL (6.2-8.2)
[2018-08-31] MEDS: HYDROcodone/ACETAMINOPHEN 1 EACH TABLET PEG PRN ×2 (06:38→13:28)
[2018-08-31] MEDS: INSULIN REGULAR, HUMAN 100 UNITS/ML VIAL SC SCH (06:57)
[2018-08-31] MEDS: PIPERACILLIN SODIUM/TAZOBACTAM 3.375 GM in DEXTROSE 5 % IN WATER 100 ML IV SCH ×2 (06:58)
[2018-08-31] MEDS ORDERED: FUROSEMIDE 10 MG/ML VIAL IV ONE (07:16)
--- NOTE | 2018-08-31 07:34 | PN ---
Subjective - Date and Time Seen Date: 08/31/18 Time: 07:26 Subjective Narrative: Pt. wanting off vent last night, very anxious, but was able to be calmed and helped by nursing and RT. He states that the xanax given him last pm didn't help at all and that he didn't sleep without his ambien and elavil. He states valium has been tried in past for his muslce spasms and it "did nothing for them". Nursing notes state he rested comfortably throughout the night. dietary d/w continuous feeds, pt. refused. Objective - Review of Systems Generalized/Overall Review: Reports: Weakness. Denies: Chills, Fever EENTM: Reports: No Symptoms Reported Respiratory: Reports: Shortness of Breath, Other - rhonchi and rales Cardiac: Reports: Edema. Denies: Chest Pain Abdominal: Reports: Other - bright red blood around peg tube. Denies: Nausea, Vomiting, Abdominal Pain Genitourinary Symptoms: Reports: No Symptoms Reported Musculoskeletal Complaints: Reports: Muscle Pain Neurological: Reports: Pre-existing Deficit Skin: Reports: Other - multiple wounds Endocrine: Reports: Other - sugars are variable. - Vitals Vitals: Last Vital Signs Temp 36.9 C 08/31/18 07:17 Pulse 114 H 08/31/18 07:17 Resp 20 08/31/18 07:17 BP 126/62 08/31/18 07:17 Pulse Ox 98 08/31/18 07:17 - Abnormal Lab Findings Abnormal Lab Findings: Abnormal Lab Results 08/30/18 08/30/18 08/30/18 Range/Units 06:15 07:30 12:19 RBC (4.7-6.0) M/mm3 Hgb (13.5-18.0) gm/dL Hct (42.0-52.0) % MCV (78-100) fl MCH (27-31) pg MCHC (32-36) g/dl RDW (11.5-14.0) % MPV (8-11.3) fl Lymphocytes % (20-51) % Monocytes % (0.0-9) % Eosinophils % (0.0-3.0) % Lymphocytes # (1.5-3.5) k/mm3 ESR 116 H (0-10) mm/hr pCO2 60.2 H (35.0-48.0) mmHg pO2 72.2 L (83.0-108.0) mmHg HCO3 33.7 H (21.0-28.0) mmol/L Total CO2 35.6 H (19.0-24.0) mmol/L Base Excess 7.0 H (-2.0-3.0) mmol/L ABG O2 Sat (Measured) 93.6 L (94.0-98.0) % Potassium 3.1 L D (3.4-4.6) mmol/L Chloride 95 L (97-106) mmol/L Carbon Dioxide 35.4 H (24-32.6) mmol/L Est GFR (Non-Af Amer) 273 H (60-130) mL/min BUN/Creatinine Ratio 21.7 H (9.0-21.6) Random Glucose 196 H D (70-110) mg/dL Calcium 7.4 L (7.9-10.9) mg/dL Albumin (3.4-5.0) gm/dl 08/31/18 08/31/18 Range/Units 06:12 06:12 RBC 2.84 L (4.7-6.0) M/mm3 Hgb 8.9 L (13.5-18.0) gm/dL Hct 29.2 L (42.0-52.0) % MCV 102.8 H (78-100) fl MCH 31.3 H (27-31) pg MCHC 30.5 L (32-36) g/dl RDW 17.2 H (11.5-14.0) % MPV 12.1 H (8-11.3) fl Lymphocytes % 9.7 L (20-51) % Monocytes % 12.3 H (0.0-9) % Eosinophils % 4.7 H (0.0-3.0) % Lymphocytes # 0.76 L (1.5-3.5) k/mm3 ESR (0-10) mm/hr pCO2 (35.0-48.0) mmHg pO2 (83.0-108.0) mmHg HCO3 (21.0-28.0) mmol/L Total CO2 (19.0-24.0) mmol/L Base Excess (-2.0-3.0) mmol/L ABG O2 Sat (Measured) (94.0-98.0) % Potassium (3.4-4.6) mmol/L Chloride 94 L (97-106) mmol/L Carbon Dioxide 36.1 H (24-32.6) mmol/L Est GFR (Non-Af Amer) 242 H (60-130) mL/min BUN/Creatinine Ratio 23.5 H (9.0-21.6) Random Glucose 230 H (70-110) mg/dL Calcium 7.8 L (7.9-10.9) mg/dL Albumin 1.6 L (3.4-5.0) gm/dl - EKG/Xray Findings EKG: other - sinus tach - Exam Constitutional: Present: Alert, Oriented x3, Cooperative, Mild distress, Morbidly obese ENT Exam: Present: hearing grossly normal Neck: Present: supple Respiratory: Present: no respiratory distress, rales, rhonchi Cardiovascular/Chest: Present: no murmur, tachycardia Abdomen: Present: Normal bowel sounds, other - PEG tube with new gauze around it. blood at outlet on skin yesterday pm, but no active bleeding., distended Extremity: Present: lower extremity edema, other - upper extremity edema Skin Exam: Present: normal color Neurologic: Present: oriented x 3, depressed affect Appearance: Present: no memory impairment Eye contact: Present: normal speech, avoids eye contact Thoughts: Present: no apparent hallucination Cauti Physician Documentation - Urinary Catheter Management Suprapubic Urethral Indwelling: Yes Reason for Continuing Indwelling Catheter: Prolonged immobilization Date of Insertion: 08/30/18 Time of Insertion: 09:38 Date of Removal: 08/27/18 Time of Removal: 13:25 Assessment/Plan - Problems/Diagnosis (1) Pneumonia Problem: Acute Qualifiers: Pneumonia type: due to Mycoplasma pneumoniae Laterality: right Lung location: lower lobe of lung Qualified Code(s): J15.7 - Pneumonia due to Mycoplasma pneumoniae Narrative: stable - finish zithromax (2) Sepsis Problem: Acute Qualifiers: Sepsis type: sepsis due to unspecified organism Qualified Code(s): A41.9 - Sepsis, unspecified organism Narrative: stable, feel he's on appropriate abx, but still struggles with hypotension. Feel he has third spaced a great deal of fluids and it appears to effect his lungs more than anything. will continue the zithromax for the pneumonia, the zosyn for wound and UTI infection. 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 will increase his SSI. may need to restart his lantus. (5) Severe protein-calorie malnutrition Problem: Chronic Narrative: pt. refusing continuous feeds which may improve his wound healing and recovery from current infections and his edema. Pt. is aware of these things, yet still refuses. Will do albumin IV today to see if this won't help reduce his edema. Will give after lasix is given this am. (6) Spinal cord injury at C1-C4 level Problem: Chronic Qualifiers: Encounter type: subsequent encounter Qualified Code(s): S14.101D - Unspecified injury at C1 level of cervical spinal cord, subsequent encounter (7) Ventilator dependent Problem: Chronic Narrative: is currently on higher ventilator support than is typical. difficulties in stabilizing his condition and feel weaning off the vent is most likely going to be difficult. Will look at possibly find a facility with sap business intelligence consultant in house. Current settings are pressure control with: FIO2 40%, RR 18, PEEP of 10, PC 30. Previous he was on SIMV with FIO2 of 40, Vt of 400, PEEP of 10 and RR 18. We have been unable to obtain ABG's or get artline to monitor his numbers more specifically. Last ABG was: Laboratory Tests 08/30/18 07:30 pCO2 60.2 H pO2 72.2 L HCO3 33.7 H Total CO2 35.6 H Base Excess 7.0 H ABG pH 7.37 ABG O2 Sat (Measured) 93.6 L We have been following ETCO2 as it appears to correlate fairly well, along with pulse ox: last ETCO2 this am was 63, pulse ox was 98. CXR showed: Nurse states temps are starting to trend up, though WBC has remained normal without any upward trends except on diff of monocytes and eosinophils. (8) Acute hypokalemia Problem: Acute Narrative: K is 4.1 this am, but will give lasix this am, which seems to drop his K substantially. Will continue KCL via peg and do IV riders again today. (9) Hypomagnesemia Problem: Acute Narrative: stable continue po mag-oxide. (10) Anemia Problem: Acute Qualifiers: Anemia type: iron deficiency Iron deficiency anemia type: inadequate dietary iron intake Qualified Code(s): D50.8 - Other iron deficiency anemias Narrative: Hb is 8.9 this am. toradol was stopped due to bleeding risks. He continues on elquis for his DVT. will continue to monitor. continue iron supplementation, though no recent iron/ferritin levels drawn. (11) Skin bulla Problem: Acute Narrative: treatment per podiatry - left dorsum of foot. (12) Pulmonary edema Problem: Acute Qualifiers: Chronicity: acute Qualified Code(s): J81.0 - Acute pulmonary edema Narrative: continues to improve and then worsen. his nutritional state/low albumin I feel contributes to this. He is on PS of 30 with PEEP of 10, which effects his BP's and HR, showing impairment of venous return. Feel sap business intelligence consultant would be more appropriate for managing this as we don't seem to be gaining any ground on his overall state, though he also isn't dwindling. (13) Acute respiratory failure with hypoxia and hypercapnia Problem: Acute (14) Hypotension Problem: Acute Qualifiers: Hypotension type: hypotension due to hypovolemia Qualified Code(s): I95.89 - Other hypotension; E86.1 - Hypovolemia Narrative: multi-factorial issues: anemia, nutrition - hypoalbumin, Pressures on vent, need for diuretics. I have reduced his BP meds substantially, continuing him on 25mg metoprolol for rate and inotropic effect. Doing albumin this am to see if we get any benefit. May try to reduce pressures on vent, but will see how he responds to lasix and what CXR shows. (15) Discharge planning issues Problem: Acute Narrative: feel patient is in need of higher level of care than what we can offer here. We have spent several days stabilizing him, but now that he is on a "regular vent" he is requiring expertise that has now been maximized here, without signs of substantial improvement or possibility of weaning him off current vent. Will look at transferring later today if possible.
[2018-08-31] MEDS ORDERED: INSULIN REGULAR, HUMAN 100 UNITS/ML VIAL SC SCH (07:35)
[2018-08-31] MEDS ORDERED: ALBUMIN HUMAN 12.5 G/50 ML BTL IV ONE (08:00)
[2018-08-31] MEDS: BACLOFEN 10 MG TABLET GT SCH (08:38)
[2018-08-31] MEDS: MULTIVIT MINERALS PEG SCH (08:39)
[2018-08-31] MEDS: FERROUS GLUC PEG SCH (08:39)
[2018-08-31] MEDS: DOCUSATE SODIUM 150 MG/15 ML BTL PEG SCH (08:40)
[2018-08-31] MEDS: TOLTERODINE TARTRATE 4 MG CAPSULE PO SCH (08:47)
[2018-08-31] MEDS: APIXABAN 5 MG TABLET PO SCH (08:49)
[2018-08-31] MEDS: POTASSIUM CHLORIDE IN WATER 100 ML IV SCH ×4 (08:50→11:41)
[2018-08-31] MEDS: SACCHAROMYCES BOULARDII 250 MG CAPSULE PEG SCH (08:55)
[2018-08-31] MEDS: levETIRAcetam 100 MG/ML BTL PEG SCH (08:56)
[2018-08-31] MEDS: PREGABALIN 75 MG CAPSULE PEG SCH (08:58)
[2018-08-31] MEDS: MAGNESIUM OXIDE 400 MG TABLET PEG SCH (08:59)
[2018-08-31] MEDS: SIMETHICONE 80 MG TAB.CHEW PEG SCH (08:59)
[2018-08-31] MEDS: POLYETHYLENE GLYCOL 3350 17 GM PACKET PO SCH (08:59)
[2018-08-31] MEDS: POTASSIUM CHLORIDE 40 MEQ/15 ML BTL PEG SCH (09:00)
[2018-08-31] MEDS: CALCIUM CARBONATE 500 MG TAB.CHEW PO SCH (09:03)
[2018-08-31] MEDS: MIDODRINE HCL 2.5 MG TABLET PEG SCH (09:03)
[2018-08-31] MEDS: METOLAZONE 2.5 MG TABLET PEG SCH (09:04)
[2018-08-31] MEDS: OMEPRAZOLE 2 MG/ML BTL PEG SCH (09:08)
[2018-08-31] MEDS: CHLORHEXIDINE GLUCONATE 480 ML BTL MM SCH (09:09)
[2018-08-31] MEDS ORDERED: CEFTAZIDIME 2 GM in DEXTROSE 5 % IN WATER 100 ML IV SCH ×2 (10:30)
[2018-08-31] MEDS: BUMETANIDE 1 MG TABLET GT SCH (10:31)
[2018-08-31] MEDS: METOPROLOL TARTRATE 25 MG TABLET PEG SCH (10:32)
--- NOTE | 2018-08-31 11:00 | DS ---
Transfer Discharge Summary - Diagnosis(s)/Problems (1) Pneumonia Narrative: positive for mycoplasma, started on zithromax 500mg IV daily Problem: Acute (2) Sepsis Narrative: felt to be multi-factorial: pneumonia, UTI and wound. Pneumonia treated with azithromycin. UTI and wound treated with zosyn - which had intermediate sensitivity, but covered both bacterias and we saw improvement on this regimen. Fortaz and Amikacin were only other respective Sensitive abx and I didn't want to risk further resistance to these other choices. With him starting to run fevers prior to transfer zosyn was stopped and a dose of Fortaz 2gm IV was st arted. He received multiple (4-5 L boluses of IV NS) for hypotension and tachycardia which improved both his BP and HR and did seem to stabilize him until HD#2, in the pm, when he began having more respiratory distress and he was transferred from a regular floor bed to our SCU and placed on ventilator: SIMV FIO2 of 100%, RR 16, PEEP of 5 (didn't tolerate 10 as BP's dropped into 80's), Vt of 400ml (couldn't tolerate 500ml). He was diuresed with lasix 80mg IV due to concerns for pulmonary edema, with improvement and no need for pressors but his MAP hovered around 65-69 most of the time. Last pm HD#3, he became anxious and wanted off the vent, was placed back on his trilogy, which he didn't tolerate and was then placed back on the vent, with PC settings of FIO2 of 40%, RR 18, PEEP of 10 and PS of 30. He tolerated this well with BP's and MAP being maintained > 90 and 65 respectively. During this whole time, including early this am his WBC had normalized without any left shifts and he remained afebrile until mid morning temps went to 38.1. Problem: Acute (3) Open wound Narrative: multiple wounds, of concern on admit was his left foot bulla that was unroofed by podiatry. Culture grew from his gluteal wound prior to admission on Tuesday Problem: Acute (4) Diabetes mellitus Narrative: sugars have been running 160's to 300's, trying to control with treating infections and SSI. held his typical lantus dosing. Problem: Chronic (5) Severe protein-calorie malnutrition Narrative: given tube feeds to try to help correct this and given albumin this am to help with trying to correct 3rd spacing and pressures. Problem: Chronic (6) Spinal cord injury at C1-C4 level Narrative: is bed ridden, quadraplegic with neurogenic bladder and has both a PEG tube, supapubic cath and a colostomy. nutrition and him being bed ridden has complicated his wounds. Problem: Chronic (7) Ventilator dependent Narrative: is on trilogy chronically to support ventilation. Had to go on actual ventilator with more support due to acute respiratory failure 2 days ago ~ 36hrs ago. Problem: Chronic (8) Acute hypokalemia Narrative: lasix and IVF seemed to bottom out K levels to 2.0 twice during hospitalization. He has received 3 x 40MEQ riders and K was 4.1 this am, prior to Lasix being given. he was continued on his PEG KCL of 60meq TID. Problem: Acute (9) Hypomagnesemia Narrative: corrected by IV and then continued PO mag-oxide. Problem: Acute (10) Anemia Narrative: received 2 Units of PRBC's due to drop to 7.8 Hb, mainly due to poor albumin levels and respiratory state, felt he would benefit greatly from this. Hb peaked at 9.8 and was at 8.9 this am. No active bleeding seen but he is on eliquis for DVT and did have some bleeding around his PEG tube yesterday. he was given toradol for pain management, but no more than a couple days worth of treatment. He was on PPI during this time. Problem: Acute (11) Skin bulla Narrative: left foot. unroofed by podiatry. see their note for details. Problem: Acute (12) Pulmonary edema Narrative: most likely due to rescusitation volume given for his hypotension due to sepsis, contributed by his transfusion for anemia as well as his hypoalbuminemia. did well and improved with IV lasix, but did have to go on ventilator for respiratory support evening of HD#2 and repeat CXR this am and lung exam showed worsening again after being relatively clear except for wheezing last pm. Problem: Acute (13) Acute respiratory failure with hypoxia and hypercapnia Narrative: requiring ventilator. current settings: PS FIO2 of 40%, RR 18, PEEP of 10, PS 30. Have not been able to obtain ABG's since yesterday and unable to get an art line (attempted by 2 of anesthestists) and we don't do central lines here anymore. Problem: Acute (14) Hypotension Narrative: BP's had dropped into the 80's, currently running low 100's. Takes very little for BP's to drop. Received IVF and albumin for support of pressures, but has not needed Levaphed though this was ordered and placed on hold - available in case it was needed. Problem: Acute (15) Discharge planning issues Problem: Acute - Course Description of Stay: see above individual issues. additional: patient had elavil held and ambien held. Was started on remeron last pm and given single dose of xanax. He was given dilaudid on admission for pain, but this dropped his BP's and his sats dropped into 80's so this was held. Metoprolol was decreased from 50mg bid to 25mg bid. Bumex was held in lieu of IV lasix. lantus was held in lieu of Sliding scale insulin, just increased to our High dose range this am, was on Moderate dose prior. 60minutes of time doing discharge and transfer of patient. Procedures Performed: see notes below Procedures: unroofing of left foot bulla. wound care of multiple wounds. - Results and Findings Results and Findings: Laboratory Results - last 24 hr 08/30/18 08/31/18 08/31/18 12:19 06:12 06:12 WBC 7.9 RBC 2.84 L Hgb 8.9 L Hct 29.2 L MCV 102.8 H MCH 31.3 H MCHC 30.5 L RDW 17.2 H Plt Count 213 MPV 12.1 H Immature Gran % (Auto) 0.30 Immature Gran # (Auto) 0.02 Neutrophils % 72.7 Lymphocytes % 9.7 L Monocytes % 12.3 H Eosinophils % 4.7 H Basophils % 0.3 Nucleated RBC % 0.0 Neutrophils # 5.7 Lymphocytes # 0.76 L Monocytes # 1.0 Eosinophils # 0.4 Absolute Basophils 0.0 Sodium 135 134 Plasma Sodium 137 136 Potassium 3.1 L D 4.1 D Chloride 95 L 94 L Carbon Dioxide 35.4 H 36.1 H Anion Gap 7.7 8.0 BUN 10 12 Creatinine 0.46 0.51 Est GFR (Non-Af Amer) 273 H 242 H BUN/Creatinine Ratio 21.7 H 23.5 H Random Glucose 196 H D 230 H Calcium 7.4 L 7.8 L Calcium Adj for Albumin 9.4 Total Bilirubin 0.5 AST 23 ALT 23 Alkaline Phosphatase 129 Total Protein 6.6 Albumin 1.6 L - Medications Medications: Active Medications Acetaminophen (Tylenol) 650 mg PEG QID PRN PRN Reason: Pain Stop: 09/26/18 17:43 Last Admin: 08/31/18 09:54 Dose: 650 mg Documented by: Hydrocodone Bitart/Acetaminophen (Damon 5-325) 1 each PEG QID PRN PRN Reason: Pain Stop: 09/26/18 17:43 Last Admin: 08/31/18 06:38 Dose: 1 each Documented by: Apixaban (Eliquis) 5 mg PO BID [facility] Stop: 09/26/18 21:01 Last Admin: 08/31/18 08:49 Dose: 5 mg Documented by: Baclofen (Baclofen) 10 mg GT QID [facility] Stop: 09/26/18 21:01 Last Admin: 08/31/18 08:38 Dose: 10 mg Documented by: Bumetanide (Bumex) 2 mg GT BID [facility] Stop: 09/26/18 21:01 Last Admin: 08/30/18 00:00 Dose: 2 mg Documented by: Calcium Carbonate/Glycine (Tums) 500 mg PO BID [facility] Stop: 09/29/18 21:01 Last Admin: 08/31/18 09:03 Dose: 500 mg Documented by: Chlorhexidine Gluconate (Periogard Oral Rinse 0.12%) 15 ml MM BID [facility] Stop: 09/26/18 21:01 Last Admin: 08/31/18 09:09 Dose: 15 ml Documented by: Docusate Sodium (Colace Liquid) 100 mg PEG BID [facility] Stop: 09/26/18 21:01 Last Admin: 08/31/18 08:40 Dose: 100 mg Documented by: Heparin Sodium (Beef Lung) (Heparin Lock Flush Syringe) 500 units IV ONCE PRN PRN Reason: Keep Vein Open Stop: 09/29/18 21:47 Last Admin: 08/31/18 03:46 Dose: 500 units Documented by: Azithromycin 500 mg/ Dextrose/ (Water) 250 mls @ 250 mls/hr IV Q24H [facility]; Protocol Stop: 09/26/18 14:16 Last Infusion: 08/30/18 15:46 Dose: Infused Documented by: Sodium Chloride (Sodium Chloride 0.9%) 500 mls @ 500 mls/hr IV .Q1H PRN PRN Reason: Hypotension Stop: 09/29/18 12:23 Last Infusion: 08/30/18 13:25 Dose: Infused Documented by: Heparin Sodium (Porcine) 1,000 (units/ Sodium Chloride) 501 mls @ 8 mls/hr IV Q24H [facility] Stop: 09/29/18 19:01 Last Admin: 08/30/18 21:09 Dose: Not Given Documented by: Potassium Chloride/Water (Kcl 10 Meq/100 Ml Piggyback) 100 mls @ 100 mls/hr IV Q1H [facility] Stop: 08/31/18 11:29 Last Admin: 08/31/18 09:49 Dose: 100 mls/hr Documented by: Insulin Glargine (Lantus) 12 units SC DAILY [facility] Stop: 09/27/18 09:01 Last Admin: 08/28/18 09:07 Dose: Not Given Documented by: Iron/Minerals/Multivitamins (Certagen Liquid) 15 ml PEG BID [facility] Stop: 09/28/18 09:01 Last Admin: 08/31/18 08:39 Dose: 15 ml Documented by: Levalbuterol HCl (Xopenex) 1.25 mg IH Q4H PRN PRN Reason: Shortness Of Breath/Wheezing Stop: 09/26/18 17:43 Last Admin: 08/30/18 03:52 Dose: 1.25 mg Documented by: Levalbuterol HCl (Xopenex) 1.25 mg IH TIDRT [facility] Stop: 09/28/18 13:01 Last Admin: 08/31/18 06:36 Dose: Not Given Documented by: Levetiracetam (Keppra Solution) 1,000 mg PEG BID [facility] Stop: 09/26/18 21:01 Last Admin: 08/31/18 08:56 Dose: 1,000 mg Documented by: Loratadine (Claritin) 10 mg GT HS [facility] Stop: 09/26/18 21:01 Last Admin: 08/30/18 21:19 Dose: 10 mg Documented by: Magnesium Oxide (Mag-Ox 400) 400 mg PEG TID [facility] Stop: 09/27/18 09:01 Last Admin: 08/31/18 08:59 Dose: 400 mg Documented by: Metolazone (Zaroxolyn) 2.5 mg PEG DAILY [facility] Stop: 09/27/18 09:01 Last Admin: 08/31/18 09:04 Dose: 2.5 mg Documented by: Metoprolol Tartrate (Lopressor) 25 mg PEG BID [facility] Stop: 09/29/18 21:01 Last Admin: 08/30/18 21:28 Dose: Not Given Documented by: Midodrine (Proamatine) 10 mg PEG QID [facility] Stop: 09/26/18 21:01 Last Admin: 08/31/18 09:03 Dose: 10 mg Documented by: Mirtazapine (Remeron) 30 mg PEG HS [facility] Stop: 09/29/18 21:01 Last Admin: 08/30/18 21:34 Dose: 30 mg Documented by: Montelukast Sodium (Singulair) 10 mg PEG HS [facility] Stop: 09/27/18 21:01 Last Admin: 08/30/18 21:34 Dose: 10 mg Documented by: Beneprotein 1 ea PEG BID [facility] Stop: 09/26/18 21:01 Last Admin: 08/31/18 09:03 Dose: Not Given Documented by: Virt-Phos 250 (Neutral Tablet) 250 mg PEG BID [facility] Stop: 09/26/18 21:01 Last Admin: 08/31/18 09:03 Dose: Not Given Documented by: Omeprazole (Prilosec) 20 mg PEG DAILY [facility] Stop: 09/27/18 09:01 Last Admin: 08/31/18 09:08 Dose: 20 mg Documented by: Polyethylene Glycol (Miralax) 17 gm PO DAILY [facility] Stop: 09/27/18 09:01 Last Admin: 08/31/18 08:59 Dose: 17 gm Documented by: Potassium Chloride (Potassium Chloride 40 Meq/15ml Liquid) 60 meq PEG TID [facility] Stop: 09/28/18 09:01 Last Admin: 08/31/18 09:00 Dose: 60 meq Documented by: Pregabalin (Lyrica) 150 mg PEG BID [facility] Stop: 09/26/18 21:01 Last Admin: 08/31/18 08:58 Dose: 150 mg Documented by: Saccharomyces Boulardii (Florastor) 250 mg PEG BID [facility] Stop: 09/27/18 09:01 Last Admin: 08/31/18 08:55 Dose: 250 mg Documented by: Simethicone (Mylicon Chewable Tablets) 80 mg PEG QID [facility] Stop: 09/26/18 21:01 Last Admin: 08/31/18 08:59 Dose: 80 mg Documented by: Tolterodine Tartrate (Detrol La) 4 mg PO DAILY [facility] Stop: 09/27/18 09:01 Last Admin: 08/31/18 08:47 Dose: 4 mg Documented by: Zolpidem Tartrate (Ambien) 10 mg PEG HS [facility] Stop: 09/26/18 21:01 Last Admin: 08/30/18 21:16 Dose: 10 mg Documented by: Discontinued Medications Acetaminophen (Tylenol) 1,000 mg PEG ONCE ONE Stop: 08/27/18 13:52 Last Admin: 08/27/18 14:00 Dose: 1,000 mg Documented by: Acetylcysteine (Mucomyst 20%) 800 mg IH ONCE [facility] Stop: 09/28/18 17:16 Last Admin: 08/29/18 18:00 Dose: 800 mg Documented by: Alprazolam (Xanax) 0.25 mg PO ONCE ONE Stop: 08/30/18 18:01 Last Admin: 08/31/18 06:26 Dose: Not Given Documented by: Amitriptyline HCl (Elavil) 50 mg PEG HS [facility] Stop: 09/26/18 21:01 Last Admin: 08/30/18 01:46 Dose: Not Given Documented by: Diltiazem HCl (Cardizem Cd) 120 mg PO DAILY [facility] Stop: 09/27/18 09:01 Last Admin: 08/28/18 09:07 Dose: Not Given Documented by: Furosemide (Lasix) 20 mg IV ONCE PRN PRN Reason: GIVE AFTER FIRST UNIT OF BLOOD Stop: 08/28/18 18:00 Last Admin: 08/28/18 15:54 Dose: 20 mg Documented by: Furosemide (Lasix) 80 mg IV ONCE ONE Stop: 08/29/18 19:31 Last Admin: 08/29/18 19:35 Dose: 80 mg Documented by: Furosemide (Lasix) 80 mg IV ONCE ONE Stop: 08/30/18 06:01 Last Admin: 08/30/18 06:39 Dose: 80 mg Documented by: Furosemide (Lasix) 80 mg IV ONCE ONE Stop: 08/31/18 07:17 Last Admin: 08/31/18 07:48 Dose: 80 mg Documented by: Hydromorphone HCl (Dilaudid) 0.5 mg IV ONCE ONE Stop: 08/27/18 13:52 Last Admin: 08/27/18 14:05 Dose: 0.5 mg Documented by: Hydromorphone HCl (Dilaudid) 1 mg IV Q4H PRN PRN Reason: Severe Pain (pain scale 7-10) Stop: 09/27/18 16:34 Last Admin: 08/29/18 05:12 Dose: 1 mg Documented by: Sodium Chloride (Sodium Chloride 0.9%) 1,000 mls @ 999 mls/hr IV .Q1H1M ONE Stop: 08/27/18 12:59 Last Infusion: 08/27/18 13:16 Dose: Infused Documented by: Sodium Chloride (Sodium Chloride 0.9%) 1,000 mls @ 999 mls/hr IV .Q1H1M PRN PRN Reason: HYDRATION Stop: 09/26/18 12:55 Last Infusion: 08/27/18 17:57 Dose: Infused Documented by: Piperacillin Sod/Tazobactam (Sod 3.375 gm/ Dextrose/Water) 100 mls @ 200 mls/hr IV ONCE ONE; Protocol Stop: 08/27/18 13:34 Last Infusion: 08/27/18 14:05 Dose: Infused Documented by: Sodium Chloride (Sodium Chloride 0.9%) 1,000 mls @ 126 mls/hr IV .Q7H57M PRN PRN Reason: HYDRATION Stop: 09/26/18 17:57 Last Infusion: 08/29/18 18:15 Dose: 0 mls/hr Documented by: Sodium Chloride (Sodium Chloride 0.9%) 1,500 mls @ 999 mls/hr IV .Q1H31M ONE Stop: 08/28/18 08:42 Last Infusion: 08/28/18 08:46 Dose: Infused Documented by: Piperacillin Sod/Tazobactam (Sod 3.375 gm/ Dextrose/Water) 100 mls @ 25 mls/hr IV Q8H [facility]; Protocol Stop: 09/27/18 07:46 Last Infusion: 08/31/18 08:55 Dose: 25 mls/hr Documented by: Potassium Chloride/Water (Kcl 10 Meq/100 Ml Piggyback) 100 mls @ 100 mls/hr IV Q1H [facility] Stop: 08/28/18 11:59 Last Infusion: 08/28/18 15:38 Dose: Infused Documented by: Magnesium Sulfate (Magnesium Sulfate 4 Gm) 50 mls @ 100 mls/hr IV ONCE ONE Stop: 08/28/18 09:35 Last Infusion: 08/28/18 10:21 Dose: Infused Documented by: Potassium Chloride/Water (Kcl 10 Meq/100 Ml Piggyback) 100 mls @ 100 mls/hr IV Q1H [facility] Stop: 08/29/18 10:44 Last Infusion: 08/29/18 12:27 Dose: Infused Documented by: Sodium Chloride (Sodium Chloride 0.9%) 1,000 mls @ 999 mls/hr IV .Q1H1M ONE Stop: 08/29/18 19:13 Last Admin: 08/29/18 18:17 Dose: 999 mls/hr Documented by: Potassium Chloride/Water (Kcl 10 Meq/100 Ml Piggyback) 100 mls @ 100 mls/hr IV Q1H [facility] Stop: 08/30/18 11:29 Last Infusion: 08/30/18 11:56 Dose: Infused Documented by: Potassium Chloride/Water (Kcl 10 Meq/100 Ml Piggyback) 100 mls @ 100 mls/hr IV Q1H [facility] Stop: 08/30/18 17:14 Last Infusion: 08/30/18 18:10 Dose: Infused Documented by: Albumin Human (Albuminar-25) 12.5 g in 50 mls @ 50 mls/hr IV ONCE ONE Stop: 08/31/18 08:59 Last Admin: 08/31/18 07:49 Dose: 50 mls/hr Documented by: Insulin Human Lispro (Humalog) 0 units SC [facility]; Protocol Stop: 09/26/18 21:01 Last Admin: 08/28/18 06:44 Dose: Not Given Documented by: Insulin Human Regular (Humulin R) 0 units SC [facility]; Protocol Stop: 09/27/18 12:01 Last Admin: 08/31/18 06:57 Dose: 8 units Documented by: Ketorolac Tromethamine (Toradol) 30 mg IV Q6H PRN PRN Reason: Moderate Pain (pain scale 4-6) Stop: 09/01/18 18:53 Last Admin: 08/30/18 16:03 Dose: 30 mg Documented by: Levalbuterol HCl (Xopenex) 1.25 mg IH BID [facility] Stop: 09/26/18 19:01 Last Admin: 08/27/18 18:29 Dose: Not Given Documented by: Levalbuterol HCl (Xopenex) 1.25 mg IH BIDPSYCHIATRIC Stop: 09/27/18 07:01 Last Admin: 08/29/18 09:26 Dose: 1.25 mg Documented by: Metformin HCl (Glucophage) 500 mg PEG BID [facility] Stop: 09/26/18 21:01 Last Admin: 08/28/18 09:09 Dose: Not Given Documented by: Metoprolol Tartrate (Lopressor) 50 mg PEG BID [facility] Stop: 09/26/18 21:01 Last Admin: 08/30/18 08:27 Dose: 50 mg Documented by: Potassium Chloride (Potassium Chloride 40 Meq/15ml Liquid) 60 meq PEG TID [facility] Stop: 09/26/18 18:16 Last Admin: 08/28/18 09:10 Dose: Not Given Documented by: - Disposition Disposition: Short Term Hospital Inpatient Condition: Critical
[2018-08-31] MEDS: ALBUMIN HUMAN 12.5 G/50 ML BTL IV SCH ×2 (12:53→13:13)
[2018-08-31 13:22] VITALS: BP 96/58
== END 2018-08-31 13:33 | disposition short-term general hospital (02) | DRG 871 ==
LOC: ER 11:30 → MS 13:58 → SCU 08-29 18:09
PROVIDERS: ADMIT Family Medicine; ATTEND Family Medicine
DX: J96.01 Acute respiratory failure with hypoxia; I95.9 Hypotension, unspecified; D64.9 Anemia, unspecified; E43 Unspecified severe protein-calorie malnutrition; J96.02 Acute respiratory failure with hypercapnia; D63.1 Anemia in chronic kidney disease; E11.9 Type 2 diabetes mellitus without complications; Z99.11 Dependence on respirator [ventilator] status; E87.6 Hypokalemia; A41.9 Sepsis, unspecified organism; L89.153 Pressure ulcer of sacral region, stage 3; G89.29 Other chronic pain; R23.8 Other skin changes; J15.7 Pneumonia due to Mycoplasma pneumoniae; B96.89 Other specified bacterial agents as the cause of diseases classified elsewhere; J98.9 Respiratory disorder, unspecified; R60.9 Edema, unspecified; F32.9 Major depressive disorder, single episode, unspecified; T14.8XXA Other injury of unspecified body region, initial encounter; E83.42 Hypomagnesemia; S14.104S Unspecified injury at C4 level of cervical spinal cord, sequela; G82.50 Quadriplegia, unspecified; N39.0 Urinary tract infection, site not specified; G47.00 Insomnia, unspecified
CPT/HCPCS: 36415; 36600; 71010; 71045; 73630; 74019; 74020; 80048; 80053; 81001; 82607; 82803; 83605; 83735; 85014; 85018; 85025; 85652; 86140; 86738; 86850; 87040; 87070; 87081; 87086; 94002; 94003; 94640; 94664; 96361; 96365; 99291; P9016

== ENCOUNTER 2018-11-30 14:13 | Observation (INO) ==
[2018-11-30] MEDS ORDERED: NORMAL SALINE 1,000 ML IV PRN (14:34)
[2018-11-30] MEDS ORDERED: DILTIAZEM HCL 5 MG/ML VIAL IV ONE ×2 (14:38→14:47)
[2018-11-30 14:48] LABS: Hematocrit 34.9 % (42.0-52.0); Hemoglobin 10.7 gm/dL (13.5-18.0); Mean Cell Volume 94.3 fl (78-100); Mean Corpuscular Hemoglobin 28.9 pg (27-31); Mean Corpuscular Hgb Conc 30.7 g/dl (32-36); Mean Platelet Volume 10.3 fl (8-11.3); Neutrophil # 8.5 K/mm3 (1.3-6.0); Platelet Count 499 K/mm3 (150-450); Red Cell Distribution Width 20.1 % (11.5-14.0); White Blood Count 10.8 K/mm3 (4.0-10.5)
[2018-11-30] MEDS ORDERED: ADENOSINE 3 MG/ML DISP.SYRIN IV ONE (14:53)
[2018-11-30 14:59] LABS: Prothrombin Time (Patient) 11.2 Seconds (9.1-10.7)
[2018-11-30 15:01] LABS: INR 1.14 INR (0.92-1.08); Partial Thrombolplastin Time 31.5 Seconds (24-32)
[2018-11-30 15:06] LABS: ALT 45 U/L (19-67); AST 29 U/L (0-48); Albumin * 3.1 gm/dl (3.4-5.0); Alkaline Phosphatase * 151 U/L (50-170); Anion Gap 13.2 mmol/L (6.8-13.8); BUN/Creatinine Ratio 47.8 (9.0-21.6); Bilirubin, Total 0.3 mg/dL (0.0-1.1); Blood Urea Nitrogen 22 mg/dL (6-23); Ca. Corrected For Albumin 10.8 mg/dL (8.4-10.2); Calcium * 10.4 mg/dL (7.9-10.9); Carbon Dioxide 35.4 mmol/L (24-32.6); Chloride 95 mmol/L (97-106); Glucose * 190 mg/dL (70-110); Potassium 3.6 mmol/L (3.4-4.6); Sodium 140 mmol/L (132-142); Troponin I Less than 0.017 ng/mL (0.00-0.10)
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
[2018-11-30] MEDS ORDERED: ACETAMINOPHEN 1,000 MG/100 ML BTL IV ONE ×2 (16:08→16:51)
[2018-11-30] MEDS ORDERED: ACETAMINOPHEN 500 MG TABLET PEG ONE (16:19)
[2018-11-30] MEDS: DILTIAZEM HCL 30 MG TABLET PEG SCH ×2 (17:54→23:06)
[2018-11-30] MEDS: NORMAL SALINE 1,000 ML IV PRN (19:50)
[2018-11-30] MEDS ORDERED: LEVALBUTEROL HCL 1.25 MG/3 ML AMPUL IH PRN (22:11)
[2018-11-30] MEDS ORDERED: [UNRECOGNIZED DRUG - OTHER] PEG PRN (22:11)
[2018-11-30] MEDS ORDERED: ENTERAL FORMULA PEG PRN (22:11)
[2018-11-30] MEDS ORDERED: DILTIAZEM HCL 30 MG TABLET PO SCH (22:15)
[2018-11-30] MEDS: levETIRAcetam 100 MG/ML SOLUTION PEG SCH (23:05)
[2018-11-30] MEDS: METOCLOPRAMIDE HCL 10 MG TABLET PEG SCH (23:06)
[2018-11-30] MEDS ORDERED: ACETAMINOPHEN 160 MG/5 ML LIQUID PO PRN (23:13)
[2018-11-30] MEDS ORDERED: ACETAMINOPHEN 160 MG/5 ML LIQUID PEG PRN (23:15)
[2018-12-01] MEDS ORDERED: ZOLPIDEM TARTRATE 10 MG TABLET PO SCH
[2018-12-01] MEDS: DIPHENHYDRAMINE HCL PEG PRN ×2 (00:13→06:31)
[2018-12-01] MEDS ORDERED: traMADol HCL 50 MG TABLET PEG PRN (00:44)
[2018-12-01] MEDS ORDERED: LEVALBUTEROL HCL 0.63 MG/3 ML AMPUL IH ONE (02:03)
[2018-12-01] MEDS ORDERED: IPRATROPIUM BROMIDE 0.5 MG/2.5 ML VIAL.NEB IH ONE (02:04)
[2018-12-01] MEDS ORDERED: ACETYLCYSTEINE 200 MG/ML VIAL ONE (02:05)
[2018-12-01] MEDS: NORMAL SALINE 1,000 ML IV PRN (05:32)
[2018-12-01] MEDS: METOCLOPRAMIDE HCL 10 MG TABLET PEG SCH ×2 (05:32→11:10)
[2018-12-01] MEDS: DILTIAZEM HCL 30 MG TABLET PEG SCH ×2 (05:32→11:10)
[2018-12-01] MEDS: LEVALBUTEROL HCL 0.63 MG/3 ML AMPUL IH SCH ×2 (06:39→10:30)
[2018-12-01] MEDS: IPRATROPIUM BROMIDE 0.5 MG/2.5 ML VIAL.NEB IH SCH ×2 (06:39→10:32)
[2018-12-01] MEDS: ACETYLCYSTEINE 200 MG/ML VIAL IH SCH ×2 (06:39→10:30)
[2018-12-01] MEDS ORDERED: ALBUTEROL SULFATE 0.63 MG/3 ML VIAL.NEB IH SCH (07:00)
[2018-12-01] MEDS ORDERED: OMEPRAZOLE 2 MG/ML BTL PEG SCH (07:00)
[2018-12-01] MEDS: BACLOFEN 10 MG TABLET PEG SCH ×2 (08:00→13:09)
[2018-12-01] MEDS: MAGNESIUM OXIDE 400 MG TABLET PEG SCH ×2 (08:01→13:09)
[2018-12-01] MEDS: levETIRAcetam 100 MG/ML SOLUTION PEG SCH (08:03)
[2018-12-01] MEDS: guaiFENesin/DEXTROMETHORPHAN SYRUP PEG SCH ×2 (08:15→13:10)
[2018-12-01] MEDS ORDERED: PROTEIN SUPPLEMENT PEG SCH (09:00)
[2018-12-01] MEDS ORDERED: CHLORHEXIDINE GLUCONATE MOUTHWASH MM SCH (09:00)
[2018-12-01] MEDS ORDERED: IPRATROPIUM BROMIDE 0.5 MG/2.5 ML VIAL.NEB IH SCH (09:00)
[2018-12-01] MEDS ORDERED: METOPROLOL TARTRATE 50 MG TABLET PO SCH (09:00)
[2018-12-01] MEDS ORDERED: WHEY PROTEIN ISOLATE PEG SCH (09:00)
[2018-12-01] MEDS ORDERED: SENNOSIDES 8.6 MG TABLET PEG SCH (09:00)
[2018-12-01] MEDS ORDERED: FUROSEMIDE 40 MG TABLET PEG SCH (09:00)
[2018-12-01] MEDS ORDERED: POTASSIUM CHLORIDE 40 MEQ/15 ML LIQUID PEG SCH (09:00)
[2018-12-01] MEDS ORDERED: COLLAGENASE CLOSTRIDIUM HIST. 30 APPL TUBE TP SCH (09:00)
[2018-12-01] MEDS ORDERED: ACETYLCYSTEINE 200 MG/ML VIAL IH SCH (09:00)
[2018-12-01] MEDS ORDERED: MONTELUKAST SODIUM 10 MG TABLET PEG SCH (09:00)
[2018-12-01] MEDS ORDERED: POLYETHYLENE GLYCOL 3350 17 GM PACKET PO SCH (09:00)
[2018-12-01] MEDS ORDERED: APIXABAN 5 MG TABLET PO SCH (09:00)
[2018-12-01] MEDS ORDERED: TOLTERODINE TARTRATE 4 MG CAPSULE PO SCH (09:00)
[2018-12-01] MEDS ORDERED: METOPROLOL TARTRATE 25 MG TABLET PO SCH (09:00)
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
[2018-12-01 13:12] VITALS: BP 110/71
[2018-12-01] MEDS ORDERED: CETIRIZINE HCL 1 MG/ML PEG SCH (21:00)
[2018-12-01] MEDS ORDERED: INSULIN DETEMIR 100 UNITS/ML VIAL SC SCH (21:00)
[2018-12-01] MEDS ORDERED: AMITRIPTYLINE HCL 50 MG TABLET PEG SCH (21:00)
== END 2018-12-01 13:00 ==
LOC: ER 14:13 → MS 14:13
PROVIDERS: ADMIT Family Medicine; ATTEND Family Medicine
CPT/HCPCS: 36415; 36600; 71010; 71045; 80053; 82803; 83519; 83605; 83735; 83880; 84484; 85025; 85379; 85610; 85730; 87081; 93005; 94640; 94664; 96361; 96365; 96375; 99285; G0378; J0131